=== PATIENT | male | born 1930 | race Caucasian/White ===

== ENCOUNTER 2017-01-27 15:58 | Inpatient (IN) | payer MEDICARE, OTHER ==
[~2017-01-27] VITALS: Ht 162.6 cm; Wt 73.4 kg
[2017-01-27 16:03] VITALS: BP 161/75; PULSE 98; RESP 24; O2SAT 92
--- NOTE | 2017-01-27 16:18 | ED.REPORT ---
HPI-General Illness Date of Service Jan 27, 2017 ED Provider: Charly Diaz MD Patient is an 86 year old male with a history of hypertension and dementia who presents to the ED complaining of left index finger swelling. According to , the patient smashed his finger 2 days ago and had a doctor drain it. He was seen at today, who reports that the finger looks infected, with increased erythema, swelling and that the finger is hot to the touch. The patient denies chills or fever. When asked if he injured his finger, the patient states that it spontaneously started swelling and he did not smash it. The patient also reports that it started swelling a week ago. The patient was unable to give an accurate history secondary to his dementia. Information was obtained from notes, triage nurse and patient's son. Nursing Notes Stated Complaint: LEFT FINGER SWOLLEN/SENT FROM Chief Complaint: General Complaint Nursing Notes Reviewed: Yes Allergies: Coded Allergies: No Known Allergies (Unverified , 01/26/16) Scheduled Metoprolol Tartrate (Metoprolol Tartrate) 25 Mg Tablet 25 MG PO DAILY General Time Seen by MD: 16:17 Chief Complaint Other (left index finger swelling) Hx Obtained From: Patient, Son, Primary care provider () Arrived By: Walk-in Sudden in Onset?: Yes Onset Occurred: 2 days ago Symptom Duration: Since onset Location: : Hand left Quality: Painful Radiation: : Does not radiate Recent Healthcare: No recent hospitalization, Recent doctor visit Similar Sx Previous: No Past Medical History Past Medical History Reports: Hypertension Reports: Dementia Past Surgical History hernia repair Reports: Appendectomy, Tonsillectomy Smoking History Unknown if Ever Smoker Social History Other Social History: Good social support Ambulatory Status Independent Review of Systems Full Review of Systems Constitutional: Denies: Chills, Fever Respiratory: Denies: Non-productive cough, Shortness of breath Musculoskeletal: Reports: Extremity pain (left index finger), Extremity swelling Skin: Denies Rash Complete sys rev & neg: except as marked. Physical Exam Vital Signs Vital Signs Date Time Temp Pulse Resp B/P Pulse Ox O2 Delivery O2 Flow Rate FiO2 01/27/17 17:10 97 20 157/73 94 Room Air 01/27/17 17:02 97 20 157/73 94 Room Air 01/27/17 16:03 37.2 98 24 161/75 92 Room Air Initial VS: Reviewed General/Constitutional: Awake, Alert, No acute distress Head / Eyes: Atraumatic, Normocephalic, PERRL, EOMI Neck: Atraumatic, Full range of motion Respiratory / Chest: Atraumatic, No respiratory distress Upper Extremities Upper Extremity / MS: Atraumatic, Full range of motion HAND: left index finger is erythematous, swollen with significant fluctuance of entire dorsum extending from the nail bed to proximal MCP joint. Appears to be filled with purulent material. Sensation and nerves still intact. No evidence of trauma Skin: No rash, Warm, Dry Neurologic: Speech NL, No motor deficits, No sensory deficits Psychiatric: Affect NL, Mood NL Interpretation & Diagnostics Lab Results Interpretation Result Diagram: 01/27/17 1648 01/27/17 1648 Test 01/27/17 16:48 White Blood Count 16.7th/mm3 (3.8-10.1) Red Blood Count 4.56mil/mm3 (4.40-5.80) Hemoglobin 13.0g/dL (13.8-17.2) Hematocrit 40.1% (41.0-50.0) Mean Corpuscular Volume 87.9fL (81-100) Mean Corpuscular Hemoglobin 28.5pg (27.0-35.0) Mean Corpuscular Hemoglobin Concent 32.4% (32.0-37.0) Red Cell Distribution Width 13.9% (12.3-15.4) Platelet Count 238bil/L (150-400) Neutrophils (%) (Auto) 83.0% (40-74) Lymphocytes (%) (Auto) 8.9% (14-46) Monocytes (%) (Auto) 7.7% (4-12) Eosinophils (%) (Auto) 0% (0-5) Basophils (%) (Auto) 0.1% (0-3) Sodium Level 137mEq/L (134-144) Potassium Level 4.1mEq/L (3.5-5.2) Chloride Level 102mEq/L (97-108) Carbon Dioxide Level 20mmol/L (18-29) Blood Urea Nitrogen 23mg/dL (8-27) Creatinine 1.31mg/dL (0.76-1.27) Estimat Glomerular Filtration Rate 55mL/min (>59) Glucose Level 133mg/dL (60-99) Lactic Acid Level 1.2mmol/L (0.4-2.0) Calcium Level 9.3mg/dL (8.5-10.1) Total Bilirubin 0.8mg/dL (0.0-1.2) Aspartate Amino Transf (AST/SGOT) 15U/L (0-50) Alanine Aminotransferase (ALT/SGPT) 10U/L (0-44) Alkaline Phosphatase 78U/L (25-160) Total Protein 7.4g/dL (6.4-8.4) Albumin 3.6g/dL (3.4-5.0) ECG Interpretation ECG Interpretation: normal axis normal intervals inferior Q waves present no ST segment elevation no acute T wave abnormalities compared to prior EKG, prior inferior Q waves are now pronounced otherwise no acute ischemic changes are present Time: 16:46 Interpreted by: ED physician Normal ECG Interpretation: Normal rate (96), Normal sinus rhythm X-Ray Chest Interpretation Chest Xray Interpretation: IMPRESSION: Mild bibasilar atelectasis in the setting of reduced inspiratory volume and chronic mild asymmetric elevation of the right hemidiaphragm. A slight degree of pulmonary edema conceivably could be superimposed. Dictated by: Artur Potter M.D. on 01/27/2017 at 17:52 Approved by: Artur Potter M.D. on 01/27/2017 at 17:53 View: Portable, 1 view Interpretation / Wet Read by: Interpret - Radiologist X-Ray Interpretation Xray Interpretation: IMPRESSION: Second digit prominent soft tissue swelling, no gas in the soft tissues. Small metallic foreign bodies as discussed. No acute trauma found. Moderate osteoarthritis incidentally noted. Dictated by: Artur Potter M.D. on 01/27/2017 at 17:53 Approved by: Artur Potter M.D. on 01/27/2017 at 17:55 X-Ray Ordered: Hand left Interpretation / Wet Read by: Interpret - Radiologist Procedures Incision & Drainage Abscess Time: 16:35 Procedure Performed by: ED physician Consent / Setup / Site Prep: Consent from patient, Consent from guardian, Time-out performed Location of Abscess: left index finger Skin Preparation Agent: Other (chloraprep) Pus Drained: Small (1ml) Post-Procedure / Complications: Culture obtained, Dressing applied, Condition improved, Tolerated procedure well, Patient stable Re-Eval/Medical Decision Med Decision/Clinical Course Patient is an 86 year old male with a history of hypertension and dementia who presents to the ED complaining of left index finger swelling. According to , the patient smashed his finger 2 days ago and had a doctor drain it. He was seen at today, who reports that the finger looks infected, with increased erythema, swelling and that the finger is hot to the touch. The patient denies chills or fever. When asked if he injured his finger, the patient states that it spontaneously started swelling and he did not smash it. The patient also reports that it started swelling a week ago. The patient was unable to give an accurate history secondary to his dementia. Information was obtained from notes, triage nurse and patient's son. Here in the emergency department the patient is afebrile and hemodynamically stable though borderline tachycardic. Examination reveals significant swelling , erythema and abscess formation about the entire dorsum of his left index finger. IV access was obtained, blood cultures were sent and the wound was opened using an 18-gauge needle and pus was expressed/sent for culture, the patient was started on IV Unasyn. Labs as below: WBC 16.7/Hgb 13.0/Hct 40.1/BUN 23/Creatinine 1.31 CMP otherwise unremarkable Lactic acid 1.2 Patient was discussed with orthopedic surgery, Dr. Robb, who agreed to evaluate the patient for likely operative management. I do not feel that this is an abscess which is appropriate for drainage in the emergency department. Dr. Robb requested that I consult infectious disease and I spoke with Dr. Christina who agreed to formally consult and he also agreed with our choice and initial antibiotics. The patient was admitted to the hospitalist service in stable condition for further management. Time of Eval: 16:37 Re-Evaluation/Progress Note: Discussed plan for admit. Patient understands and agrees to plan. All questions were addressed. Consultation #1: Referral / Consult Name: Rodney Robb MD Consulted With: Surgeon (ortho) Call Returned at: 16:28 Bakery Sales Clerk: Agrees with eval, Agrees with plan Note: Consult with Dr. Robb, who requests the patient be admitted to the hospitalist service. Consultation #2: Referral / Consult Name: Jose Christina MD Consulted With: On-call physician (infectious disease) Call Returned at: 17:15 Bakery Sales Clerk: Will see patient, Agrees with eval, Agrees with plan Consultation #3: Referral / Consult Name: Maranda Loco DO Consulted With: Hospitalist Call Returned at: 19:18 Bakery Sales Clerk: Agrees with eval, Agrees with plan, Accepts admit Counseled Regarding: Diagnosis, Lab results, Need for admission Discharge & Departure Primary Impression: Injury of left index finger Encounter type: initial encounter Qualified Code: S69.92XA - Unspecified injury of left wrist, hand and finger(s), initial encounter Additional Impressions: Abscess of index finger Cellulitis of index finger Laterality: left Qualified Code: L03.012 - Cellulitis of left finger Tachycardia Leukocytosis Leukocytosis type: unspecified Qualified Code: D72.829 - Elevated white blood cell count, unspecified Disposition: ADMITTED TO HOSPITAL Discharge Condition All VS Reviewed: Yes Condition: Stable Referrals: Gabe Sanon MD (PCP) Addie Attestation Portions of this note were transcribed by Nuris Roberson. I, Dr. Diaz personally performed the history, physical exam and medical decision-making; I reviewed and confirmed the accuracy of the information in the transcribed note. Signed by: Addie Khan, 01/27/17 and 1640 copies to: Gabe Sanon MD, Beck O MD Jan 27, 2017 16:18 Josy Roberson Jan 27, 2017 16:29
[2017-01-27] MEDS ORDERED: Ampicillin-Sulbactam Inj 3,000 MG in 0.9% Sodium Chloride 100 ML IV ONE (16:30)
[2017-01-27] MEDS ORDERED: Alum-Mag Hydrox-Simeth 30 mL Suspension PO PRN ×2 (16:30→20:05)
[2017-01-27] MEDS ORDERED: Ondansetron 2 mg/mL 2 mL Inj IVPUSH PRN ×2 (16:30→20:05)
[2017-01-27] MEDS ORDERED: METO25TA6 PO (16:40)
[2017-01-27 16:51] LABS: BASOPHILS % (AUTO) 0.1 % (0-3); EOSINOPHILS % (AUTO) 0 % (0-5); MONOCYTES % (AUTO) 7.7 % (4-12); Mean Corpuscular Hemoglobin 28.5 pg (27.0-35.0); Mean Corpuscular Volume 87.9 fL (81-100); Platelet Count 238 bil/L (150-400)
[2017-01-27 17:02] VITALS: BP 157/73; PULSE 97; RESP 20; O2SAT 94
--- NOTE | 2017-01-27 17:54 | DRSVH ---
PROCEDURE: X-RAY CHEST, TWO VIEWS ([id number]) INDICATIONS: low sat TECHNIQUE: 2 views of the chest were acquired. COMPARISON: None. FINDINGS: Surgical changes and devices: None. Lungs and pleura: No pleural effusions or pneumothorax. Lungs are abnormal with reduced inspiratory volume and mild elevation of the right hemidiaphragm as has been previously the case. There is what appears to be mild bibasilar atelectasis rather than pneumonia.. Mediastinum: Mediastinal contours are normal. Heart size is normal. Bones and chest wall: No suspicious bony abnormalities. Soft tissues appear unremarkable. IMPRESSION: Mild bibasilar atelectasis in the setting of reduced inspiratory volume and chronic mild asymmetric elevation of the right hemidiaphragm. A slight degree of pulmonary edema conceivably cou ld be superimposed. Dictated by: Artur Potter M.D. on 01/27/2017 at 17:52 Approved by: Artur Potter M.D. on 01/27/2017 at 17:53
--- NOTE | 2017-01-27 17:56 | DRSVH ---
PROCEDURE: X-RAY FINGERS, TWO VIEWS INDICATIONS: low sat TECHNIQUE: AP hand, 2 views of the second finger(s) acquired. COMPARISON: None. FINDINGS: Bones: No fractures or dislocations. No suspicious bony lesions. Soft tissues: No suspicious soft tissue calcifications but there are 2 small metallic structures wit hin soft tissues lateral to the proximal phalanx of the second digit, and a similar appearing structu re superimposed on the distal aspect of the fourth proximal phalanx also laterally. The appearance m ay indicate prior metal working in this circumstance. Underlying osteomyelitis or fracture is not se en but soft tissue swelling is clearly evident over the entirety of the second digit. IMPRESSION: Second digit prominent soft tissue swelling, no gas in the soft tissues. Small metallic foreign bodies as discussed. No acute trauma found. Moderate osteoarthritis incidentally noted. Dictated by: Artur Potter M.D. on 01/27/2017 at 17:53 Approved by: Artur Potter M.D. on 01/27/2017 at 17:55
[2017-01-27 18:01] VITALS: BP 179/79; PULSE 92; RESP 16; O2SAT 96
--- NOTE | 2017-01-27 18:25 | NUR ---
ADMIT Patient received from the ED via a gurney. Transferred independently in bed. Patient is alert and oriented to person and place only. Dressing in his L 2nd finger is CDI. Denies pain, nausea/SOB. Oriented to room and call light. [place] alarm is on for safety.
[2017-01-27 19:35] VITALS: BP 166/71; PULSE 80; RESP 16; O2SAT 92
[2017-01-27] MEDS ORDERED: Polyethylene Glycol (PEG) 17 Gm Powder PO PRN (20:05)
--- NOTE | 2017-01-27 20:28 | PCM.HPMED ---
Subjective Date of Service Jan 27, 2017 Primary Provider: Admitting Physician: Maranda Loco DO Primary Care Physician: Gabe Sanon MD Attending Physician: Maranda Loco DO Admit Status: From the Emergency Department Chief Complaint: Infected left index finger History of Present Illness: The patient is a pleasant happily demented 86 Y/O M with past medical history of dementia, and essential hypertension controlled on metoprolol 25 mg daily. The patient presented to the ED from urgent care with complaint of left dorsal index finger redness, swelling, warmth, purulence and pain. The patient is an extremely poor historian and his family is not present during the interview. The patient states he believes the wound occurred approximately 2 weeks ago, however per the ED physician note and the urgent care note it seems the onset may have been 2 days ago. The patient is unable to recall any form of trauma to the finger. He states that the wound just happened. Patient patient denies fever, nausea, vomiting, chills, sweats, sore throat, abdominal pain, constipation, dysuria, cough, shortness of breath, dyspnea, chest pain. Patient currently lives with his son Larry as well as reportedly other family members he was unable to identify. An attempt to call his son's phone number was unsuccessful given the phone number had been disconnected. Phone number the patient gave for his son was [phone]. In the ED patient had I&D of the left dorsal index finger with removal of a small amount of pus that was sent for culture. Orthopedic surgery Dr. Cindy Robb was consulted by the ED physician and will be seeing the patient. Infectious disease was also consulted and is aware of the patient's status per the ED physician. The patient also has a wound on the back of his neck that he has been nervously picking at and causing to bleed. There was fresh blood on the pillowcase during the exam. Patient also appears to be excoriations on his right anterior forehead. X-ray showed: 2 small metallic structures within soft tissues lateral to the proximal phalanx of the second digit, and a similar appearing structure superimposed on the distal aspect of the fourth proximal phalanx also laterally. The appearance may indicate prior metal working in this circumstance. Underlying osteomyelitis or fracture is not seen but soft tissue swelling is clearly evident over the entirety of the second digit. Moderate osteoarthritis incidentally noted. CXR showed: Mild bibasilar atelectasis in the setting of reduced inspiratory volume and chronic mild asymmetric elevation of the right hemidiaphragm. A slight degree of pulmonary edema conceivably could be superimposed. In the ED patient received 3000 mg of Unasyn IV. Vital signs: temperature 37.2, pulse 80, respiratory rate 16, blood pressure 161 /75, oxygen 92% on room air hemogram showed: WBC 16.7 with 83.0 PMNs and 8.9% lymphs, H/H was 13.0/40.1, and MCV of 87.9, MCH 28.5, MCHC 32.4 Chemistry panel significant for a creatinine of 1.31 and a glucose of 133 Lactic acid was normal at 1.2 Urinalysis was not done EKG showed: Unknown rhythm, irregular rate, heart rate of 96, WI interval of 133 with nonspecific intraventricular conduction delay, he was present in leads II, III, and F aVF consistent with old inferior wall infarct, no acute ST segment changes or elevations or depressions note wave abnormalities seen. Review of Systems: A comprehensive review of systems was conducted and was negative except as mentioned in history of present illness. Allergies Coded Allergies: No Known Allergies (Unverified , 01/26/16) Home Medications Metoprolol Tartrate (Metoprolol Tartrate) 25 Mg Tablet 25 MG PO DAILY PMH Reports: Hypertension Reports: Dementia History of bilateral decubitus ulcer on the right buttock stage II 11/22/2016 Chronic skin sensation disorder Surgical History hernia repair Appendectomy Tonsillectomy Family History Father Mother Older sister who is alive and healthy Social History Hx Alcohol Use: No Hx Substance Use: No Hx Tobacco Use: No Smoking Status: Unknown if Ever Smoker Living Arrangement: with Family (lives with son Larry) Exam Vital Signs Vital Sign - Last Date Time Temp Pulse Resp B/P Pulse Ox O2 Delivery O2 Flow Rate FiO2 01/27/17 19:35 37.1 80 16 166/71 92 Room Air Exam General: He is alert and oriented to self only, speaking in full sentences, very poor historian giving his underlying chronic Alzheimer's dementia, happily demented, HEENT: Relatively recent appearing excoriations on the forehead, wound on posterior neck, no mastoid condon signs or signs of ecchymoses, eyes, pupils are 3 mm and symmetric, PERRLA, EOMI, neck, soft supple, no adenopathy, no JVD, no masses, no thyromegaly, throat mucous membranes pink and moist, no erythema, no exudates, Dentures on upper and lower jaw Lungs: CTAB all kulkarni, no wheezes, no rhonchi, no crackles, no adventitious lung sounds, no use of accessory muscles of respiration, good air movement, good respiratory effort. Heart: Regular rate and rhythm, no murmur, no rub, no click, no distant heart sounds, Abdomen: Soft, nontender, nondistended, bowel sounds active, no rebound, no guarding, palpable hernia on anterior of abdomen that is 3 cm superior to the umbilicus Genitourinary: No CVA tenderness, no suprapubic tenderness, no Bullock catheter, Extremities: Muscle strength, 5 out of 5 upper/lower extremity and symmetric laterally, Upper ext. pulses equal and symmetric. Lower extremity pulses diminished but present b/l, feet warm to touch. no edema Neurologic: Grossly neurologically intact, speaking in full sentences, able to follow directions and answer questions but often with inconsistency, no focal neurological signs. Skin: Dorsal index finger infection on left hand and mostly distal to and slightly involving the PIP joint with swelling, erythema, purulent, and painful but with good capillary refill, dressed with a clean gauze bandage, excoriations on forehead, posterior neck wound Psychiatric: Happily demented elderly gentleman Lab and Diagnostics Result Diagram: 01/27/17 1648 01/27/17 1648 X-Rays, CTs and MRIs Date of Service: 01/27/17 1627 PROCEDURE: X-RAY CHEST, TWO VIEWS FINDINGS: Surgical changes and devices: None. Lungs and pleura: No pleural effusions or pneumothorax. Lungs are abnormal with reduced inspiratory volume and mild elevation of the right hemidiaphragm as has been previously the case. There is what appears to be mild bibasilar atelectasis rather than pneumonia.. Mediastinum: Mediastinal contours are normal. Heart size is normal. Bones and chest wall: No suspicious bony abnormalities. Soft tissues appear unremarkable. IMPRESSION: Mild bibasilar atelectasis in the setting of reduced inspiratory volume and chronic mild asymmetric elevation of the right hemidiaphragm. A slight degree of pulmonary edema conceivably could be superimposed. Dictated by: Artur Potter M.D. on 01/27/2017 at 17:52 Approved by: Artur Potter M.D. on 01/27/2017 at 17:53 Date of Service: 01/27/17 1627 PROCEDURE: X-RAY FINGERS, TWO VIEWS INDICATIONS: low sat Bones: No fractures or dislocations. No suspicious bony lesions. Soft tissues: No suspicious soft tissue calcifications but there are 2 small metallic structures within soft tissues lateral to the proximal phalanx of the second digit, and a similar appearing structure superimposed on the distal aspect of the fourth proximal phalanx also laterally. The appearance may indicate prior metal working in this circumstance. Underlying osteomyelitis or fracture is not seen but soft tissue swelling is clearly evident over the entirety of the second digit. IMPRESSION: Second digit prominent soft tissue swelling, no gas in the soft tissues. Small metallic foreign bodies as discussed. No acute trauma found. Moderate osteoarthritis incidentally noted. Dictated by: Artur Potter M.D. on 01/27/2017 at 17:53 Approved by: Artur Potter M.D. on 01/27/2017 at 17:55 Assessment & Plan #Purulent acute Left index finger infection/cellulitis, active, present on admission - Vital signs: temperature 37.2, pulse 80, respiratory rate 16, blood pressure 161/75, oxygen 92% on room - Wbc's greater than 16,000 -Lactic acid was 1.2 normal - She denies pain currently - X-ray showed: 2 small metallic structures within soft tissues lateral to the proximal phalanx of the second digit, and a similar appearing structure superimposed on the distal aspect of the fourth proximal phalanx also laterally. The appearance may indicate prior metal working in this circumstance. Underlying osteomyelitis or fracture is not seen but soft tissue swelling is clearly evident over the entirety of the second digit. Moderate osteoarthritis incidentally noted. - Dr. Rodney Robb orthopedic surgery consulting thank you for your input. - Dr. Jose Christina infectious disease consulting, thank you for your input. - Patient currently on IV normal saline at 85 ML's per hour maintenance. - Patient made nothing by mouth for possible surgical procedure with orthopedic surgery - Patient is status post I&D in the ED with culture of the purulent material recovered. We are awaiting the culture results - We will continue the Unasyn IV antibiotics started in the ED, #Elevated creatinine, chronicity unknown, present on admission - EKG showed: Unknown rhythm, irregular rate, heart rate of 96, WI interval of 133 with nonspecific intraventricular conduction delay, he was present in leads II, III, and F aVF consistent with old inferior wall infarct, no acute ST segment changes or elevations or depressions note wave abnormalities seen. - Chemistry panel significant for a creatinine of 1.31 #Leukocytosis with left shift, present remission, active - Patient does not meet sepsis criteria - WBCs 16.7, left shift of 89% PMNs - CXR showed: Mild bibasilar atelectasis in the setting of reduced inspiratory volume and chronic mild asymmetric elevation of the right hemidiaphragm. A slight degree of pulmonary edema conceivably could be superimposed. - Likely secondary infected left index finger - We will get UA to rule out possible urinary tract infection given patient's underlying dementia - Continue antibiotic Unasyn as previously stated - Infectious disease consulting #Normocytic normochromic anemia, chronicity unknown, present on admission - H/H was 13.0/40.1, and MCV of 87.9, MCH 28.5, MCHC 32.4 #Hyperglycemia, present on admission -Glucose 133 - Hemoglobin A1c pending Problems include #Hypertension, chronic, presumed stable - Continue home medications metoprolol 25 mg daily #Dementia, presumed stable Disposition: Admitted to in patient service with expected length of stay greater than 2 days, secondary to severity of presenting symptoms, treatment plan, complexity of clinical work up, and risk of adverse events. CODE STATUS: Full code PCP: No current PCP DVT PE prophylaxis: SCD's/Enoxiparin/SubQ heparin Q8H Contact: Larry patient's son VTE Mechanical Devices: Intermittant Pneumatic CD Attending Statement The patient was seen and examined together with house staff on 01/27/2017 and I agree with the history, exam and plan as outlined in the note above. Rodolfo Mercedes DO Jan 27, 2017 20:28 Maranda Loco DO Jan 27, 2017 22:53
[2017-01-28] VITALS (12 sets, daily range): BP systolic 109–175; BP diastolic 42–77; PULSE 69–89; RESP 16–24; O2SAT 93–100
[2017-01-28] MEDS: Ampicillin-Sulbactam Inj 3,000 MG in 0.9% Sodium Chloride 100 ML IV SCH ×3 (00:04→11:49)
[2017-01-28] MEDS: 0.9% Sodium Chloride 1,000 ML IV SCH ×2 (00:04→09:30)
--- NOTE | 2017-01-28 05:28 | CONS ---
[address] [address] CONSULTATION REPORT PATIENT: LIZETH GOMEZ : 1930 MR#: [id number] ADMIT: 01/27/2017 JOB ID: [id number] DATE OF SERVICE: 01/27/2017 ORTHOPEDIC CONSULTATION: REASON FOR CONSULTATION: Decision for surgery. CPT CODE: 67209-72 HISTORY OF PRESENT ILLNESS: I was asked to see 86-year-old male in orthopedic consultation for an infected left index finger. 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 First he states he smashed his left index finger a couple of weeks ago. 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 I asked the ED physician to take a small culture, since there appeared to be some purulent material over the dorsum of the finger. The patient was admitted and placed on IV antibiotics. PAST MEDICAL HISTORY: Positive for hypertension, dementia, prior history of decubitus ulcers in the right buttock, chronic skin sensation disorder. PRIOR SURGERIES: Hernia repair, appendectomy, tonsillectomy. SOCIAL HISTORY: Patient lives with a son. Does not smoke or drink. FAMILY HISTORY: Noncontributory. REVIEW OF SYSTEMS: Pertinent for painful left index finger with swelling and erythema. Review of systems completely reviewed, and appears to be negative, except for the painful left index finger. PHYSICAL EXAMINATION: 162 cm, 74 kg male. Patient is lying in bed. He appears to be somewhat confused as a historian. He has swelling and erythema of the dorsum of the left index finger from the middle phalanx to the distal phalanx. There is no erythema over the volar aspect of the finger. No cellulitis proximally, or lymphangitis over the forearm. The patient has decreased range of motion of the fingers secondary to pain and the infection. X-rays do show that he has a couple of very small foreign metal bodies over the index finger, which may be of indeterminate age since he also has a small 1-2 mm metal fragment over the ring finger. LABORATORY TESTING: White count 16,700, hemoglobin 13.0, hematocrit 40.1, and platelet count 238,000. Sodium 137, potassium 4.1, chloride 102, CO2 of 20, BUN 23, creatinine 1.31. Lactic acid 1.2. Liver function tests within normal limits. IMAGING: Chest x-ray shows some mild bibasilar atelectasis, but no other acute infiltrates. Finger x-ray showed soft tissue swelling of the left index finger, with two small metallic foreign bodies and some moderate degenerative osteoarthritis. The patient also has a small metal foreign body over the ring finger. This may be of indeterminate age. IMPRESSION: Left index finger infection. PLAN: The patient will be taken to the operating room on January 28, 2017, for incision, drainage, irrigation, and debridement of the infection. The patient does have some dementia. His son is going to be here tomorrow, and his son will also need to be available to counter-sign surgical consents. The patient is currently on Unasyn, and should stay on Unasyn. I did explain to the patient that he may require more than one surgery, but hopefully, will not; hopefully one surgery with some wound care might take care of the infection. Infectious Disease was also consulted.
[2017-01-28 06:42] LABS: BASOPHILS % (AUTO) 0.3 % (0-3); EOSINOPHILS % (AUTO) 1.5 % (0-5); MONOCYTES % (AUTO) 7.5 % (4-12); Mean Corpuscular Hemoglobin 28.3 pg (27.0-35.0); Mean Corpuscular Volume 89.1 fL (81-100); NEUTROPHILS % (AUTO) 75.9 % (40-74); Platelet Count 213 bil/L (150-400)
[2017-01-28] MEDS ORDERED: Lidocaine PF 1% 30 mL Inj ONE (09:51)
[2017-01-28] MEDS ORDERED: Ondansetron 2 mg/mL 2 mL Inj ONE (09:51)
[2017-01-28] MEDS ORDERED: Propofol 10,000 mCg/mL 20 mL Inj ONE (09:51)
[2017-01-28] MEDS ORDERED: Phenylephrine/NS-PF 100 mCg/mL 5 mL Syringe IVPUSH ONE (09:51)
[2017-01-28] MEDS ORDERED: EPHEDrine/NS 5 mg/mL 5 mL Syringe ONE (09:51)
[2017-01-28] MEDS ORDERED: fentaNYL-PF 50 mCg/mL 2 mL Inj ONE (09:51)
--- NOTE | 2017-01-28 11:19 | PCM.HPANE ---
Patient Data Date of Service: Jan 28, 2017 Surgeon Admitting Provider:Marjan Bauer MD Attending Provider:Marjan Bauer MD Primary Care Physician:Gabe Sanon MD Other Provider: Reason for Visit Finger Infection Ht/WT & BMI Height (Feet): 5 Height (Inches): 4.00 Weight (Kilograms): 74.500 Body Mass Index 28.04 Allergies Coded Allergies: No Known Allergies (Unverified , 01/26/16) Past Anesthesia History Anesthesia History: Denies:: Anesthesia Reactions Diabetes History Hx Diabetes?: No MRSA MRSA: No Medications Hypertension Medication: Yes Home Meds Incl Beta Veronica: Yes Date Beta Veronica Taken: Jan 28, 2017 Time Beta Veronica Taken: 09:30 Reported Medications Metoprolol Tartrate 25 Mg [id number] Mg PO DAILY 01/27/17 History History of ENT Problems?: Yes HEENT History: Denies:: Abnormal Airway TMJ Denture Type: Full- Upper Full- Lower Teeth Condition: No Teeth Other HEENT Pertinent History: astigmatism Hx of Heart Problems?: Yes Cardiovascular History: Positive for:: Edema Hypertension Denies:: Cardiac Surgery Chest Pain Congestive Heart Failure Heart Murmur Irregular Heartbeat Pacemaker Thrombophlebitis Hx of Respiratory Problem?: No Respiratory History: Denies:: COPD Cough Dyspnea Pneumonia Tuberculosis Use of Inhalers / NEBS Hx Neurologic Problems?: Yes Neurological History: Positive for:: Alzheimer's Disease Dementia Hx of GI Problems?: No Hx of Problems?: No Male Hx: Denies:: Prostate Problems Scrotal Mass Testicular Surgery Other Skin Pertinent History: Current admission: lt.index finger injury: swelling, redness, painful to touch, purulent content visible within Hx Musculoskeletal Problems?: Yes Musculoskeletal History: Positive for:: Back Injury (spinal stenosis) Denies:: Joint Replacement Musculoskeletal Trauma Hx of Psycho/Social Problems?: No Hx Surgeries?: Yes (hernia repair, appendectomy, tonsillectomy) Hx Any Other Health Problems?: Yes Other History: Denies:: Cancer Hospitalization Thyroid Disease History Blood Transfusions: Positive for:: Accept Blood Products? Denies:: Blood Transfusions Hx Diabetes: No Hx Alcohol Use: NoHx Substance Use: No Smoking Status: Unknown if Ever Smoker Have You Smoked inLast 12 mo: No Stop/Bang Treated for Sleep Apnea?: No Do You Have a CPAP Machine?: No S-Snoring: Do You Snore Loudly: No T-Tired: feel tired, fatigued: No O-Obsered: Observed not breath: No P-Blood Pressure: treated: Yes B- Body Mass Index > 35 kg/m2: No A- Age over 50: Yes N- Neck Large Circumference: No G- Gender Male: Yes ALTAF Total Score: 2 ALTAF Risk Assessment: Low Risk, <3 Yes Risk Assessment Category Category 1A: Patient has history of documented sleep apnea, and HAS NOT received any narcotic, sedative or anesthesia administration during this stay. Category 1B: Patient has history of documented sleep apnea, and HAS received any narcotic , sedative or anesthesia administration during this stay Category 2: Patient has SUSPECTED Obstructive Sleep Apnea, and HAS received any narcotic , sedative or anesthesia administration during this stay. Category 3: Patient has SUSPECTED Obstructive Sleep Apnea and HAS NOT received narcotic, sedative or anesthesia administration during this stay. Category 4: Outpatient in Procedural Areas with known sleep apnea or who screen positive for High Risk via the STOP/BANG questionnaire. Exam Exam Vital Signs Vital Signs Date Time Temp Pulse Resp B/P Pulse Ox O2 Delivery O2 Flow Rate FiO2 01/28/17 09:02 36.7 89 18 175/77 95 Room Air 01/28/17 05:50 36.7 74 18 167/71 94 Room Air General Appearance: Alert, Cooperative, No Acute Distress HEENT/AIRWAY: MP 1, Neck Movement (limited extension, tmd > 3 fb), Mouth Opening (normal, edentulous) Lungs: Clear to Auscultation, Normal Air Movement Heart: Regular Rate/Rhythm, Other (occasional ectopy) Meds/Labs/Diagnostics Admission Meds Current Medications Ampicillin Sodium/ Sulbactam Sodium 3000 mg/Sodium Chloride 100 ml @ 200 mls/ hr ONCE ONCE IV Last administered on 01/27/17 17:02; Start 01/27/17 at 16:30 ; Stop 01/27/17 at 16:59; Status DC Sodium Chloride 1,000 ml @ 85 mls/hr [id number] IV Last administered on 01/28/17 09:30; Start 01/27/17 at 20:02 Ampicillin Sodium/ Sulbactam Sodium/ Sodium Chloride (Unasyn Inj/ Normal Saline ) 100 ml @ 200 mls/hr Q6H IV Last administered on 01/28/17 05:17; Start at 23:00 Metoprolol Tartrate (Lopressor) 25 mg DAILY PO Last administered on 01/28/17t 09 :29; Start 01/28/17 at 08:30 Labs Test 01/27/17 16:48 01/28/17 05:57 Hemoglobin A1c 5.7% (4.8-5.6) Lactic Acid Level 1.2mmol/L (0.4-2.0) White Blood Count 12.3th/mm3 (3.8-10.1) Red Blood Count 4.13mil/mm3 (4.40-5.80) Hemoglobin 11.7g/dL (13.8-17.2) Hematocrit 36.8% (41.0-50.0) Mean Corpuscular Volume 89.1fL (81-100) Mean Corpuscular Hemoglobin 28.3pg (27.0-35.0) Mean Corpuscular Hemoglobin Concent 31.8% (32.0-37.0) Red Cell Distribution Width 13.7% (12.3-15.4) Platelet Count 213bil/L (150-400) Neutrophils (%) (Auto) 75.9% (40-74) Lymphocytes (%) (Auto) 14.6% (14-46) Monocytes (%) (Auto) 7.5% (4-12) Eosinophils (%) (Auto) 1.5% (0-5) Basophils (%) (Auto) 0.3% (0-3) Sodium Level 141mEq/L (134-144) Potassium Level 3.9mEq/L (3.5-5.2) Chloride Level 107mEq/L (97-108) Carbon Dioxide Level 21mmol/L (18-29) Blood Urea Nitrogen 19mg/dL (8-27) Creatinine 1.07mg/dL (0.76-1.27) Estimat Glomerular Filtration Rate 69mL/min (>59) Glucose Level 95mg/dL (60-99) Calcium Level 8.9mg/dL (8.5-10.1) Total Bilirubin 1.0mg/dL (0.0-1.2) Aspartate Amino Transf (AST/SGOT) 13U/L (0-50) Alanine Aminotransferase (ALT/SGPT) 7U/L (0-44) Alkaline Phosphatase 68U/L (25-160) Total Protein 6.6g/dL (6.4-8.4) Albumin 3.1g/dL (3.4-5.0) Plan Impression Patient chart reviewed, patient interviewed and anesthestic plan with risks, benefits, and alternatives discussed, and informed consent obtained. NPO per Anesth. Guidelines: Yes ASA Physical Status: ASA2 Mod Systemic Disease Anesthetic Plan: GA Bene/Risks/Altern/Consents: Yes (with son (DPOA)) HP Complete Prior to Induction: Yes Other Patient refused regional anesthesia for procedure and desired GA. Son (DPOA) with patient and desired GA as well for patient. Dell Rangel MD Jan 28, 2017 11:19
--- NOTE | 2017-01-28 12:03 | NUR ---
Med Rec Pt. alert and oriented x2, unable to verify meds/doses. Made an attempt to contact Son, Lawson, also unavailable at this time. Pt.s' pharmacy is closed on Weekends. This med rec needs to be verified once these resources become available.
--- NOTE | 2017-01-28 12:07 | PCM.PNMED ---
Subjective Date of Service Jan 28, 2017 Subjective No complaints, denies pain. Exam Vital Signs Vital Sign - Last Date Time Temp Pulse Resp B/P Pulse Ox O2 Delivery O2 Flow Rate FiO2 01/28/17 09:02 36.7 89 18 175/77 95 Room Air Intake and Output 01/27/17 01/27/17 01/28/17 Cumulative From/Thru 15:00 23:00 07:00 01/27/17 16:03 - 01/28/17 05:50 Intake Total 400 ml 400 ml Output Total 200 ml 200 ml Balance 200 ml 200 ml Intake Oral 0 ml 0 ml IV Total 400 ml 400 ml Output Urine Total 200 ml 200 ml # Voids 1 1 # Bowel Movements 0 0 Exam General: Alert, oriented only to name, no acute distress Heart: Regular with occl irreg beat, EKG SR with PAC's Lungs: Clear Abdomen: Soft, non-tender Extremities: No pedal edema, left index finger with dressing in place IVs and Medications Medications Reviewed: Medications were reviewed in detail Lab and Diagnostics Result Diagram: 01/28/17 0557 01/28/17 0557 X-Rays, CTs and MRIs Date of Service: 01/27/171626 PROCEDURE: X-RAY CHEST, TWO VIEWS FINDINGS: Surgical changes and devices: None. Lungs and pleura: No pleural effusions or pneumothorax. Lungs are abnormal with reduced inspiratory volume and mild elevation of the right hemidiaphragm as has been previously the case. There is what appears to be mild bibasilar atelectasis rather than pneumonia.. Mediastinum: Mediastinal contours are normal. Heart size is normal. Bones and chest wall: No suspicious bony abnormalities. Soft tissues appear unremarkable. IMPRESSION: Mild bibasilar atelectasis in the setting of reduced inspiratory volume and chronic mild asymmetric elevation of the right hemidiaphragm. A slight degree of pulmonary edema conceivably could be superimposed. Dictated by: Artur Potter M.D. on 01/27/2017 at 17:52 Approved by: Artur Potter M.D. on 01/27/2017 at 17:53 Date of Service: 01/27/171626 PROCEDURE: X-RAY FINGERS, TWO VIEWS INDICATIONS: low sat Bones: No fractures or dislocations. No suspicious bony lesions. Soft tissues: No suspicious soft tissue calcifications but there are 2 small metallic structures within soft tissues lateral to the proximal phalanx of the second digit, and a similar appearing structure superimposed on the distal aspect of the fourth proximal phalanx also laterally. The appearance may indicate prior metal working in this circumstance. Underlying osteomyelitis or fracture is not seen but soft tissue swelling is clearly evident over the entirety of the second digit. IMPRESSION: Second digit prominent soft tissue swelling, no gas in the soft tissues. Small metallic foreign bodies as discussed. No acute trauma found. Moderate osteoarthritis incidentally noted. Dictated by: Artur Potter M.D. on 01/27/2017 at 17:53 Approved by: Artur Potter M.D. on 01/27/2017 at 17:55 Assessment & Plan #Purulent acute Left index finger infection/cellulitis, active, present on admission - WBC 16.7 on admit, 12.3 this am - X-ray showed: 2 small metallic structures within soft tissues lateral to the proximal phalanx of the second digit, and a similar appearing structure superimposed on the distal aspect of the fourth proximal phalanx also laterally. The appearance may indicate prior metal working in this circumstance. Underlying osteomyelitis or fracture is not seen but soft tissue swelling is clearly evident over the entirety of the second digit. Moderate osteoarthritis incidentally noted. - Dr. Rodney Robb orthopedic surgery consulted and hopes to do surgery today, son hasn't arrived yet to give consent (and not answering phone) - Patient currently on IV normal saline at 85 ML's per hour maintenance. - Patient made nothing by mouth for possible surgical procedure with orthopedic surgery - Patient is status post I&D in the ED with culture of the purulent material recovered. 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 A slight degree of pulmonary edema conceivably could be superimposed. - Likely secondary infected left index finger - UA ordered to rule out possible urinary tract infection given patient's underlying dementia, not yet done - Continue antibiotic Unasyn as previously stated - Infectious disease consulting #Normocytic normochromic anemia, chronicity unknown, present on admission - H/H was 13.0/40.1, and MCV of 87.9, MCH 28.5, MCHC 32.4 - dropped to 11.7 this am after IVF - recheck in am #Hyperglycemia, present on admission -Glucose 133 on admission, 95 this am - Hemoglobin A1c 5.7 - no rx needed Chronic Problems include #Hypertension, chronic, presumed stable. SBP mostly 160's here - Continue home medications metoprolol 25 mg but increase from daily to BID #Dementia, presumed stable Disposition: Admitted to in patient service with expected length of stay greater than 2 days, secondary to severity of presenting symptoms, treatment plan, complexity of clinical work up, and risk of adverse events. CODE STATUS: Full code PCP: No current PCP DVT PE prophylaxis: SCD's/Enoxiparin/SubQ heparin Q8H Contact: Larry patient's son VTE Mechanical Devices: Intermittant Pneumatic CD Marjan Bauer MD Jan 28, 2017 12:06
--- NOTE | 2017-01-28 12:23 | NUR ---
surgical consent with patient's dementia history, he is unable to sign consent form for surgery. Discussed with Dr Robb about having patient's son sign consent form. I have called son's number several times over the last couple hours and only getting a message that "the person you are trying to reach is unavailable" message. unable to leave any message. I've called patient's contact number as well without success. I will continue to call number until son is reached.
--- NOTE | 2017-01-28 13:44 | CONS ---
[address] [address] CONSULTATION REPORT PATIENT: LIZETH GOMEZ : 1930 MR#: [id number] ADMIT: 01/27/2017 JOB ID: [id number] DATE OF SERVICE: 01/28/2017 INFECTIOUS DISEASE CONSULTATION: I thank Dr. Mercedes for this timely consult. REASON FOR CONSULTATION: Left 2nd finger infection. HISTORY OF PRESENT ILLNESS: The patient is a moderately demented 86-year-old gentleman. When I evaluated the patient early this afternoon, there was no one else present and the nurse told me they are having difficulty reaching his son to come in and provide history and surgical consents. Because of that I was restricted to the notes in the chart as well as speaking to the patient. The patient's history was quite vague. He said his left 2nd finger has been swelling and hurting for "a while." He says it is now warm, red and tender and he thinks this started after a logging accident. 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 So the exact mechanism of his finger injury remains unclear. 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 The patient said that aside from the finger he has been feeling well for his age. He tells me he has no fevers, chills or sweats. No sore throat. No significant cough, shortness of breath or chest pain. He does accurately state he lives with his son which I think is actually correct. Note that when the patient through the ED yesterday, January 27, limited incision and drainage of that left 2nd finger was done which produced a culture which is currently pending. Orthopedics has seen the patient and I think he should go to the OR for more extensive debridement of this fusiform infection of the left 2nd finger, but they are currently unable to find the son to get consent. PAST MEDICAL HISTORY: 1. Dementia. 2. Hypertension. 3. History of decubitus ulcer on the right buttock back in October. SOCIAL HISTORY: The patient states he was a smoker but it was a long time ago. He said he has always stayed away from alcohol and is a nondrinker. 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 FAMILY HISTORY: He states that there is no history of TB in his first-degree relatives. REVIEW OF SYSTEMS: Was done. Though it is not certain how useful it was in this gentleman with fairly advanced dementia, but he states he has no headache, no acute visual change, no sore throat or trouble swallowing. No significant cough or chest pain. No nausea, vomiting or diarrhea. He said he has no dysuria but he has had urinary frequency for years. He states he is able to walk though I did not see him do that here in the room. The remainder of the review of systems was noncontributory and negative as well. PHYSICAL EXAMINATION: Reveals a pleasant gentleman sitting in a chair next to the bed. He looks completely comfortable. His temperature is 36.7, and he has been afebrile since his admission yesterday. Pulse is in the 80s, respiratory rate 18, blood pressure 175/77. He is saturating well on room air. With respect to the mental status, the patient is oriented just to himself. He is unable to state where he is and has no idea about the year. He does know his birthday but seems uncertain about where he was born and he is very unclear about where he currently resides though he is certain it is with his son. Examination of the head reveals no trauma. The eyes are without conjunctivitis or scleral icterus. There is no temporal wasting. Oral cavity without thrush or hairy leukoplakia. No pharyngitis. Neck without adenopathy. Lungs quite clear posteriorly. Cardiac examination with a 2/6 systolic murmur heard best at the lower left sternal border. The abdomen is soft and nontender without organomegaly. The patient does not have a Bullock catheter and there is no suprapubic fullness, penile or scrotal abnormalities. The lower extremities are notable for some decreased pulses in the extremities, but they are reasonably well perfused and warm. The patient does not have any significant rash. The only real notable abnormality on his exam is his left 2nd finger. This is wrapped in a rather complex dressing and apparently is quite painful to remove and so I trusted the descriptions by the other physicians including Orthopedics in the chart. It said to show fusiform inflammation, erythema and clearly it is quite tender which I can appreciate through the dressing that is present. Neurologically, the patient moves everything, has reasonable strength. LABORATORIES: Include white count 17,000 yesterday, now 12. There is considerable left shift. His creatinine 1.07. Hemoglobin A1c 5.7. LFTs normal. Albumin 3.1. Micro studies include blood cultures that are negative from yesterday. The ED limited I and D yielded a few drops of pus that were sent to the micro lab shows rare polys and some gram positive cocci and it is already growing Staph aureus. IMPRESSION: This is an elderly gentleman with underlying dementia and hypertension who otherwise looks quite healthy. He presents with a left swollen, tender, erythematous 2nd finger of unknown duration and mechanism of injury. It seems clear that he needs incision and drainage and efforts are underway to get consent from his son so that the ortho team can take him to the OR today. We already have an identification of the infecting microorganism and this is a Staph aureus, though we do not yet know whether this is MRSA or MSSA. RECOMMENDATIONS: 1. Will send a MRSA swab of the nares. 2. We await the pending cultures and the results from today's surgery. 3. In view of the fact we already know this is a Staph aureus I think we can start to narrow the antibiotics. The patient is currently on Unasyn, which is a bit of a difficult antibiotic in his situation because they have to have a sitter with him in the room because he is grabbing at and playing with the IV. To simplify things, we will go ahead and switch to daptomycin as a once a day IV agent with great activity against Staph and strep. 4. When the patient is ready for discharge, we will either use oral antibiotics or perhaps a long-acting agent such as dalbavancin unless at surgery they find evidence of osteomyelitis, so I would not baires to put in a PICC line at this point. It would be very difficult to have a PICC line in this patient in any event, because I believe he would likely just pull it out once he was left unsupervised. Thank you very much for allowing me to see this patient.
--- NOTE | 2017-01-28 13:45 | NUR ---
to OR patient transferred to OR for I&D of finger wound. Son came in and consent signed.
[2017-01-28] MEDS ORDERED: Lactated Ringer's 1,000 ML IV ONE (13:47)
[2017-01-28] MEDS ORDERED: Bupivacaine-MPF 0.5% 30 mL Inj INFILTRATE ONE (14:33)
[2017-01-28] MEDS ORDERED: Lactated Ringer's 500 ML IV PRN (14:38)
[2017-01-28] MEDS ORDERED: Lactated Ringer's 1,000 ML IV SCH (14:38)
[2017-01-28] MEDS ORDERED: fentaNYL-PF 50 mCg/mL 2 mL Inj IVPUSH PRN (14:40)
[2017-01-28] MEDS ORDERED: Ondansetron 2 mg/mL 2 mL Inj IVPUSH PRN (14:40)
[2017-01-28] MEDS ORDERED: Phenylephrine 10,000 mCg/mL Inj IVPUSH PRN (14:40)
[2017-01-28] MEDS ORDERED: Atropine 0.4 mg/mL Inj IVPUSH PRN (14:40)
[2017-01-28] MEDS ORDERED: EPHEDrine Sulfate 50 mg/mL Inj IVPUSH PRN (14:40)
[2017-01-28] MEDS ORDERED: HYDROmorphone 1 mg/mL Inj IVPUSH PRN (14:40)
[2017-01-28] MEDS ORDERED: Dexamethasone 4 mg/mL Inj IVPUSH PRN (14:40)
--- NOTE | 2017-01-28 15:41 | NUR ---
Social Work: Attempted Initial Assessment D: EMR reviewed. Pt is a 86 y/o male admitted for finger infection per H&P. SW attempted to meet with pt at bedside to conduct initial assessment but pt was in OR. Pt's insurance is Medicare and [facility]. Pt's NOK is son, Lawson Dunn ([phone]). A: TBD once pt returns from OR P: Attempt to assess pt once pt returns from OR VERONIQUE Marcus
--- NOTE | 2017-01-28 16:17 | NUR ---
return from PACU received report from PACA at 1600hrs. patient returned to room 1022 at 1615hrs assumed care.
[2017-01-28] MEDS: DAPTOmycin Inj 500 MG in 0.9% Sodium Chloride 50 ML IV SCH (16:58)
--- NOTE | 2017-01-28 17:40 | OP ---
[address] [address] OPERATIVE REPORT PATIENT: LIZETH GOMEZ : 1930 MR#: [id number] ADMIT: 01/27/2017 JOB ID: [id number] DATE OF SURGERY: 01/28/2017 SURGEON: Rodney Robb MD HARDWARE TECHNICIAN: None. PREOPERATIVE DIAGNOSIS(ES): Left index finger infection over the middle and distal phalanges. ICD10 code S60.411A. POSTOPERATIVE DIAGNOSIS(ES): Left index finger infection over the middle and distal phalanges. ICD10 code S60.411A. PROCEDURE: Incision and drainage, superficial infection of left index finger over the middle and distal phalanges. CPT code 22004. ANESTHESIA: General plus metacarpal nerve block performed by surgeon for postoperative analgesia. DRAINS: None. COMPLICATIONS: None. ESTIMATED BLOOD LOSS: 3 mL. SPONGE AND NEEDLE COUNT: Correct. INDICATIONS: This is an 86-year-old male, who had some type of contusion to the hand, but he is not quite sure exactly what happened. He developed an infection of dorsal aspect status over the left index finger, over the middle and distal phalanges. The patient was seen by emergency department staff and they did aspirate a small amount and sent this fluid for culture yesterday. He was admitted for IV antibiotics. PROCEDURE IN DETAIL: Under adequate general anesthesia, a well-padded tourniquet was applied to the left upper extremity. Left arm was prepped and draped in sterile fashion. The arm was elevated but was not exsanguinated due to infection and it was inflated to 250 mmHg. A dorsal incision was fashioned over the distal portion of the middle phalanx and distal phalanx to the edge of the eponychial fold. There was purulent material and this was sent to Pathology. There was also some dermolysis and this skin that was peeling was surgically excised with scalpel. Any necrotic tissue and any purulent tissue or necrotic fat was removed. Cultures were sent. The wound was thoroughly irrigated with antibiotic solution with gentamicin. Some of the skin edges were sharply debrided. After the wound was thoroughly irrigated, clean gloves, clean instruments, and clean drapes were utilized. In order not to leave the central tendon exposed and possibly desiccate, I did loosely approximate the wound with a couple of horizontal mattress sutures of 4-0 nylon, leaving a couple of central and distal areas open that were packed with quarter-inch gauze. Xeroform was placed over the inflamed tissue leaving the central portion of the wound open and not occluded with Xeroform. Dry sterile gauze dressings were applied. Please note, tourniquet was released prior to packing the wound. Specimens were sent to Pathology including aerobic and anaerobic cultures. After the patient's hand was sterilely dressed, he was taken to recovery room in stable condition. Sponge and needle count correct. No complications. PLAN: The patient will continue to be on the hospitalist service and receive IV antibiotics, pending wound cultures. He will also need some outpatient wound care for dressing changes probably beginning on February 01. Infectious Disease should be consulted as to the extent of his antibiotics and the type of antibiotics. The patient may be followed back in the office in two weeks for suture removal.
--- NOTE | 2017-01-28 17:47 | NUR ---
confusion patient alert to self and occasionally place. he's been pleasantly confused. per son, mentation is close to his normal baseline. patient has attempted to pull at IV lines and dressing. 1:1 sitter at bedside throughout the day. patient returned from Surgery after I&D of left index finger. denies any pain or discomfort. continue to monitor.
--- NOTE | 2017-01-28 19:03 | PCM.ANEP1 ---
Post Anesthesia PACU Phase 1 Assessment Date of Service: Jan 28, 2017 Vital Signs Vital Signs Date Time Temp Pulse Resp B/P Pulse Ox O2 Delivery O2 Flow Rate FiO2 01/28/17 16:28 36.7 69 16 173/71 93 Nasal Cannula 2.00 01/28/17 15:56 36.6 71 18 136/63 95 Nasal Cannula 2 01/28/17 15:45 78 21 142/64 93 Room Air 01/28/17 15:40 36.5 79 24 151/59 100 BLOW BY 7 01/28/17 15:28 76 18 158/60 98 Simple Mask 7 01/28/17 15:20 89 16 109/ 97 Simple Mask 7 01/28/17 15:15 72 17 109/42 97 Simple Mask 7 01/28/17 15:12 37.2 128/54 Anesthetic Administered: GA Level of Alertness: Sleepy, easy to arouse SINGH's with Equal Strength: Yes Pain: No Nausea or Vomiting: No CV Function & Hydration Stable: Yes Airway Device: none Oxygen Delivery: Nasal Cannula Lungs: Clear to Auscultation, Normal Air Movement Dermatome Level: Full Sensation Summary Patient had some emergence delirium but doing better with reassurance. PACU Phase 2 Assessment Complications: No Follow up Care: No Patient Instructions Provided: N/A Dell Rangel MD Jan 28, 2017 19:03
[2017-01-29] VITALS (7 sets, daily range): BP systolic 160–189; BP diastolic 58–80; PULSE 62–82; RESP 16–18; O2SAT 93–96
[2017-01-29] MEDS: 0.9% Sodium Chloride 1,000 ML IV SCH ×3 (01:25→13:01)
--- NOTE | 2017-01-29 04:24 | NUR ---
Activity Pt. ambulates in room well. Pt. has sitter, as pt. can pull at lines and dressing. Pt. is alert and oriented x1. Extremity elevated during assessment, however pt. constantly moves around in bed, and is not being cooperative with elevating the extremity. Pt. denies pain. Will continue to monitor.
[2017-01-29 06:43] LABS: BASOPHILS % (AUTO) 0.3 % (0-3); EOSINOPHILS % (AUTO) 3.8 % (0-5); MONOCYTES % (AUTO) 7.1 % (4-12); Mean Corpuscular Hemoglobin 28.6 pg (27.0-35.0); Mean Corpuscular Volume 89.2 fL (81-100); NEUTROPHILS % (AUTO) 74.1 % (40-74); Platelet Count 256 bil/L (150-400)
--- NOTE | 2017-01-29 11:58 | PCM.PNORTH ---
Subjective Date of Service: Jan 29, 2017 Visit Information: Reason for Visit Finger Infection Surgery/Surgery Date I & D LEFT INDEX FINGER 01/28/17 Post-Op Day # 1 Date of Admission: Jan 27, 2017 at 17:38 Hospital Day # Subjective Patient is pleasantly confused and states he is having no pain. He does make references to going out into the og and states that's why his bandages are messy. He has no concerns at this time. Patient has a sitter and she states he has been messing with his bandages frequently. Postop General: No Complaints, No Shortness of Breath, No Chest Pain Pain Management: PO Objective Exam Objective Patient sitting up in chair watching TV. Sitter on couch beside him. Vital Signs and I/O Vital Sign - Last Date Time Temp Pulse Resp B/P Pulse Ox O2 Delivery O2 Flow Rate FiO2 01/29/17 08:30 36.7 70 16 175/73 96 Nasal Cannula 1.00 Intake and Output 01/28/17 01/28/17 01/29/17 Cumulative From/Thru 15:00 23:00 07:00 01/27/17 16:03 - 01/29/17 06:05 Intake Total 500 ml 1278 ml 600 ml 2778 ml Output Total 500 ml 600 ml 1300 ml Balance 500 ml 778 ml 0 ml 1478 ml Intake Oral 400 ml 600 ml 1000 ml IV Total 500 ml 878 ml 1778 ml Output Urine Total 500 ml 600 ml 1300 ml # Voids 3 3 7 # Bowel Movements 1 1 Lab & Micro Results Laboratory Tests Test 01/29/17 04:05 01/29/17 06:21 Hold Urine Received (Received) White Blood Count 11.4th/mm3 (3.8-10.1) Red Blood Count 4.44mil/mm3 (4.40-5.80) Hemoglobin 12.7g/dL (13.8-17.2) Hematocrit 39.6% (41.0-50.0) Mean Corpuscular Volume 89.2fL (81-100) Mean Corpuscular Hemoglobin 28.6pg (27.0-35.0) Mean Corpuscular Hemoglobin Concent 32.1% (32.0-37.0) Red Cell Distribution Width 13.6% (12.3-15.4) Platelet Count 256bil/L (150-400) Neutrophils (%) (Auto) 74.1% (40-74) Lymphocytes (%) (Auto) 14.4% (14-46) Monocytes (%) (Auto) 7.1% (4-12) Eosinophils (%) (Auto) 3.8% (0-5) Basophils (%) (Auto) 0.3% (0-3) Sodium Level 140mEq/L (134-144) Potassium Level 3.9mEq/L (3.5-5.2) Chloride Level 107mEq/L (97-108) Carbon Dioxide Level 19mmol/L (18-29) Blood Urea Nitrogen 17mg/dL (8-27) Creatinine 1.07mg/dL (0.76-1.27) Estimat Glomerular Filtration Rate 69mL/min (>59) Glucose Level 171mg/dL (60-99) Calcium Level 8.6mg/dL (8.5-10.1) Total Creatine Kinase 55U/L (21-232) Microbiology 01/27/17 Blood Culture - Preliminary, Resulted NO GROWTH AFTER 24 HOURS 01/28/17 MRSA (PCR) - Final, Complete 01/28/17 Gram Stain - Final, Resulted 01/28/17 Culture & Sensitivity, Resulted Pending 01/28/17 Anaerobic Culture, Resulted Pending Result Diagram: 01/29/1762001/29/17 06 General Appearance: Alert, Oriented X3, Cooperative, No Acute Distress Extremities: Distal Pulses Palpable, No Compartment Syndrom Noted Postop Sensory Motor: Distal Motor Intact, Movement in Fingers, Distal Sensation Intact, NVI Distally SURGICAL WOUND : Wound Location/Description Perioperative dressings intact and dry, although it is clear they have been unwrapped and rewrapped or picked at by patient. Incision General Appearance: No Direct Observation Activity: Ambulate with PT (NWB with L index finger) Assessment & Plan Impression POD#1 left index finger I&D Problems: Plan Weightbearing: NWB with left index finger Wound care: Keep dressings intact until wound care can see patient. Recommend wound care see patient TOMORROW (01/30/17). Dressings can be changed, packing removed, and wound redressed. Recommend bulky dressing to limit finger motion and tension on wound. Analgesia: Continue PO tylenol Discharge plan: Discharge home vs SNF when medically cleared. I suspect he will be here another day on IV antibiotics. Follow-up plan: In 2 weeks at [facility] with JOELLE for wound check and suture removal in 2 weeks. Cornelia Vigil PA-C Jan 29, 2017 11:58
--- NOTE | 2017-01-29 15:30 | NUR ---
POD1 Patient is alert and oriented X 1 only. Confused. Tylenol administered for generalized discomfort. Tolerating liquids PO and his diet well. Denies nausea. No emesis noted. Denies SOB. Patient has been able to ambulate with SBA in the room. Sat in the chair for a couple of hours, several times this shift. Tolerated activity well. Dressing is CDI with old shadowing noted. Patient has been picking on his dressing. Sitter is at the bedside for safety. (I.E: Patient needs frequent reminder not to pull off his dressing/his IV line). Voiding without any problems. Senna administered for no BM X 3 days, which was effective. Per sitter patient had a BM this shift. Care continues.
[2017-01-29] MEDS: DAPTOmycin Inj 500 MG in 0.9% Sodium Chloride 50 ML IV SCH (16:17)
--- NOTE | 2017-01-29 16:20 | NUR ---
Social Work: Attempted Initial Assessment D: EMR reviewed. Pt is on day 2 of hospitalization. SW attempted to meet with pt at bedside to conduct initial assessment after attempt yesterday when pt was in OR. Pt is not an accurate historian at this time. Pt has Dementia at baseline. SW called pt's NOK, son Lawson Dunn ([phone]) and left voicemail. SW will continue to attempt to assess pt and reach pt's NOK. A: TBD P: Attempt to assess pt by reaching NOK. Pt is not an accurate historian at this time. VERONIQUE Marcus
--- NOTE | 2017-01-29 16:20 | PCM.PNMED ---
Subjective Date of Service Jan 29, 2017 Subjective No complaints Exam Vital Signs Vital Sign - Last Date Time Temp Pulse Resp B/P Pulse Ox O2 Delivery O2 Flow Rate FiO2 01/29/17 15:40 160/78 01/29/17 15:25 36.7 62 18 96 Room Air 01/29/17 08:30 1.00 Intake and Output 01/28/17 01/28/17 01/29/17 Cumulative From/Thru 15:00 23:00 07:00 01/27/17 16:03 - 01/29/17 06:05 Intake Total 500 ml 1278 ml 600 ml 2778 ml Output Total 500 ml 600 ml 1300 ml Balance 500 ml 778 ml 0 ml 1478 ml Intake Oral 400 ml 600 ml 1000 ml IV Total 500 ml 878 ml 1778 ml Output Urine Total 500 ml 600 ml 1300 ml # Voids 3 3 7 # Bowel Movements 1 1 Exam General: Alert, cheerful, no acute distress Heart: Regular Lungs: Clear Abdomen: Soft, non-tender Extremities: No pedal edema, left index finger with dressing Lab and Diagnostics Result Diagram: 01/29/1762001/29/17620 X-Rays, CTs and MRIs Date of Service: 01/27/171626 PROCEDURE: X-RAY CHEST, TWO VIEWS FINDINGS: Surgical changes and devices: None. Lungs and pleura: No pleural effusions or pneumothorax. Lungs are abnormal with reduced inspiratory volume and mild elevation of the right hemidiaphragm as has been previously the case. There is what appears to be mild bibasilar atelectasis rather than pneumonia.. Mediastinum: Mediastinal contours are normal. Heart size is normal. Bones and chest wall: No suspicious bony abnormalities. Soft tissues appear unremarkable. IMPRESSION: Mild bibasilar atelectasis in the setting of reduced inspiratory volume and chronic mild asymmetric elevation of the right hemidiaphragm. A slight degree of pulmonary edema conceivably could be superimposed. Dictated by: Artur Potter M.D. on 01/27/2017 at 17:52 Approved by: Artur Potter M.D. on 01/27/2017 at 17:53 Date of Service: 01/27/177 PROCEDURE: X-RAY FINGERS, TWO VIEWS INDICATIONS: low sat Bones: No fractures or dislocations. No suspicious bony lesions. Soft tissues: No suspicious soft tissue calcifications but there are 2 small metallic structures within soft tissues lateral to the proximal phalanx of the second digit, and a similar appearing structure superimposed on the distal aspect of the fourth proximal phalanx also laterally. The appearance may indicate prior metal working in this circumstance. Underlying osteomyelitis or fracture is not seen but soft tissue swelling is clearly evident over the entirety of the second digit. IMPRESSION: Second digit prominent soft tissue swelling, no gas in the soft tissues. Small metallic foreign bodies as discussed. No acute trauma found. Moderate osteoarthritis incidentally noted. Dictated by: Artur Potter M.D. on 01/27/2017 at 17:53 Approved by: Artur Potter M.D. on 01/27/2017 at 17:55 Assessment & Plan #Purulent acute Left index finger infection/cellulitis, active, present on admission - WBC 16.7 on admit, 11.4 this am - X-ray showed: 2 small metallic structures within soft tissues lateral to the proximal phalanx of the second digit, and a similar appearing structure superimposed on the distal aspect of the fourth proximal phalanx also laterally. The appearance may indicate prior metal working in this circumstance. Underlying osteomyelitis or fracture is not seen but soft tissue swelling is clearly evident over the entirety of the second digit. Moderate osteoarthritis incidentally noted. - Patient is status post I&D in the ED with culture of the purulent material recovered. Culture with staph aureus, sens pending - Dr. Rodney Robb orthopedic surgery did I & D January 28 - We will continue the Unasyn IV antibiotics started in the ED - initial wound culture with s. aureus - sens still pending - Infectious disease consulting, Dr. 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 SBP 160-186 - Continue home medication of metoprolol 25 mg but increased from daily to BID yesterday #Dementia, presumed stable Disposition: Admitted to in patient service with expected length of stay greater than 2 days, secondary to severity of presenting symptoms, treatment plan, complexity of clinical work up, and risk of adverse events. CODE STATUS: Full code PCP: No current PCP DVT PE prophylaxis: SCD's/Enoxiparin/SubQ heparin Q8H Contact: Larry patient's son VTE Mechanical Devices: Intermittant Pneumatic CD Marjan Bauer MD Jan 29, 2017 16:20 Marjan Bauer MD Jan 29, 2017 16:20
[2017-01-30] VITALS (7 sets, daily range): BP systolic 163–210; BP diastolic 68–100; PULSE 75–99; RESP 18–22; O2SAT 93–99
--- NOTE | 2017-01-30 06:07 | NUR ---
HTN/dressing pt was hypertensive this shift with SBPs in the 180s. MD was made aware via [employer] page. this AM he had a BP of 210/100. MD notified who ordered 5mg of IV Labetolol x1. Labetolol was adminstered to pt and report passed to oncoming nurse, who will reassess. pt had a 1:1 sitter this shift. but he still managed to remove his dressing including packing multiple times. finger was cleaned with NS and dressings redone. care continues.
[2017-01-30] MEDS ORDERED: Labetalol 5 mg/mL 20 mL Inj IV ONE (06:40)
--- NOTE | 2017-01-30 09:49 | PCM.PNORTH ---
Subjective Date of Service: Jan 30, 2017 Visit Information: Reason for Visit Finger Infection Surgery/Surgery Date I & D LEFT INDEX FINGER 01/28/17 Post-Op Day # 2 Date of Admission: Jan 27, 2017 at 17:38 Hospital Day # Subjective Patient complains that the dressing does not stay in place. The sitter with him states that he is continually trying to pull off the dressing. Postop General: No Complaints, No Shortness of Breath, No Chest Pain Pain Management: PO Objective Exam Objective Patient is seen sitting up in a chair. The dressing has been removed by Domingo of the wound care team. Vital Signs and I/O Vital Sign - Last Date Time Temp Pulse Resp B/P Pulse Ox O2 Delivery O2 Flow Rate FiO2 01/30/17 06:31 75 210/100 01/30/17 04:47 36.7 18 95 Room Air 01/29/17 08:30 1.00 Intake and Output 01/29/17 01/29/17 01/30/17 Cumulative From/Thru 15:00 23:00 07:00 01/27/17 16:03 - 01/30/17 04:47 Intake Total 1132 ml 1444 ml 900 ml 6254 ml Output Total 1300 ml Balance 1132 ml 1444 ml 900 ml 4954 ml Intake Oral 1444 ml 900 ml 3344 ml IV Total 1132 ml 2910 ml Output Urine Total 1300 ml # Voids 5 16 28 # Bowel Movements 2 1 4 Lab & Micro Results Microbiology 01/27/17 Blood Culture - Preliminary, Resulted No growth at 2 days; culture examined... 01/28/17 MRSA (PCR) - Final, Complete 01/28/17 Gram Stain - Final, Resulted 01/28/17 Culture & Sensitivity, Resulted Pending 01/28/17 Anaerobic Culture, Resulted Pending Result Diagram: 01/29/17 0621 01/29/17 0621 Postop Sensory Motor: Distal Motor Intact, Movement in Fingers SURGICAL WOUND : Wound Location/Description Left index finger: Sutures are intact. Packing is been removed. There are 2 small superficial wounds. Remainder of the wound is closed with sutures. There is no purulence seen. There is minimal erythema around the edges of the wound. It is tender to the touch. Activity: Ambulate with PT (NWB with L index finger) Assessment & Plan Impression POD #2 left index finger I&D Problems: Plan Wound care team will apply a new dressing today and developed plan for subsequent dressing changes. Patient will follow up with wound care clinic for future dressing changes Wound cultures are still pending Dr. Christina will determine antibiotic selection and plan. Patient will follow up with Dr. Rodney Robb in 2 weeks at the orthopedic clinic We appreciate the medical team, Dr. Christina, and Domingo of the wound care team for their involvement with this patient. Pain Management: Tylenol LaplaceIsela Diaz PA-C Jan 30, 2017 09:49
--- NOTE | 2017-01-30 10:57 | PROG NOTE ---
[address] [address] PROGRESS NOTE PATIENT: LIZETH GOMEZ : 1930 MR#: [id number] ADMIT: 01/27/2017 JOB ID: [id number] DATE: 01/30/2017 REASON FOR FOLLOWUP: Left second finger methicillin sensitive Staphylococcus aureus infection. INTERVAL HISTORY: Recall this is the elderly gentleman with significant dementia and very little else in the way of medical problems who presented with a swollen tender left distal second finger. The patient today is awake, alert, sitting up in a chair and denies complaint. He says he has a little pain around his distal left second finger, but otherwise feels fine. Denies any fevers, chills, cough, nausea, vomiting, or diarrhea. Recall that he is quite demented so it is hard to know how useful this history is, but at this point he certainly denies complaint. PHYSICAL EXAMINATION: Reveals an afebrile, elderly gentleman, temperature 36.7, pulse 75, respiratory rate 18, blood pressure is 210/100. He is saturating well on room air and certainly looks very comfortable. The lungs are clear. Cardiac tones without new murmur. Abdomen benign. The left second finger has a considerable amount of erythema and some loss of tissue over the dorsal distal second finger starting at about the PIP and extending out to the nail. He does have reasonable motion, however in this finger without obvious involvement of any of the joints. LABORATORIES: Include white count which has dropped to 11.4 as of yesterday, not repeated today. Creatinine yesterday 1.07. Culture is growing a Staph aureus from the finger. Still we do not know if it is MRSA or MSSA, but her MRSA screen of the nares is negative. IMPRESSION: This patient seems to be doing very well. I evaluated him at the bedside with the wound management team. RECOMMENDATIONS: 1. I would keep him at least one more day until we have the susceptibilities on the Staph. 2. For now will continue him on daptomycin IV once a day. 3. Will probably discharge him on oral antibiotics within the next day or so depending on his progress.
--- NOTE | 2017-01-30 11:03 | NUR ---
Wound note. 86 yo male s/p I&D of left index finger infection over the middle and distal phalanges on 01/28 by orthopedic service line. Pleasantly confused male in no acute distress, removal of dressing reveals approximately 2.5 cm long incision on the dorsal aspect of the index finger with [address], wound edges are not approximated and the wound bed has possible tendon sheath visible in the base, erythema is present to the level of the PIP, drainage is scant, no pus,no tunneling. Cleaned wound with saline and gauze, Dr Christina was able to visualize wound during wound care. Cultures reviewed. Redressed with hydrogel to keep tendon moist, Xeroform for antimicrobial protection and mepilex foam dressing with hypafix tape to hopefully keep patient from removing dressing as he is want to do. Will change dressing in 48 hrs.
--- NOTE | 2017-01-30 12:11 | PCM.PNMED ---
Subjective Date of Service Jan 30, 2017 Subjective no complaints Exam Vital Signs Vital Sign - Last Date Time Temp Pulse Resp B/P Pulse Ox O2 Delivery O2 Flow Rate FiO2 01/30/17 10:14 77 189/89 01/30/17 04:47 36.7 18 95 Room Air 01/29/17 08:30 1.00 Intake and Output 01/29/17 01/29/17 01/30/17 Cumulative From/Thru 15:00 23:00 07:00 01/27/17 16:03 - 01/30/17 04:47 Intake Total 1132 ml 1444 ml 900 ml 6254 ml Output Total 1300 ml Balance 1132 ml 1444 ml 900 ml 4954 ml Intake Oral 1444 ml 900 ml 3344 ml IV Total 1132 ml 2910 ml Output Urine Total 1300 ml # Voids 5 16 28 # Bowel Movements 2 1 4 Exam General: Alert, no acute distress Heart: Regular Lungs: Clear Abdomen: Soft, non-tender Extremities: No pedal edema, left index finger with dressing in place IVs and Medications Medications Reviewed: Medications were reviewed in detail Lab and Diagnostics Result Diagram: 01/29/1762001/29/17620 X-Rays, CTs and MRIs Date of Service: 01/27/171626 PROCEDURE: X-RAY CHEST, TWO VIEWS FINDINGS: Surgical changes and devices: None. Lungs and pleura: No pleural effusions or pneumothorax. Lungs are abnormal with reduced inspiratory volume and mild elevation of the right hemidiaphragm as has been previously the case. There is what appears to be mild bibasilar atelectasis rather than pneumonia.. Mediastinum: Mediastinal contours are normal. Heart size is normal. Bones and chest wall: No suspicious bony abnormalities. Soft tissues appear unremarkable. IMPRESSION: Mild bibasilar atelectasis in the setting of reduced inspiratory volume and chronic mild asymmetric elevation of the right hemidiaphragm. A slight degree of pulmonary edema conceivably could be superimposed. Dictated by: Artur Potter M.D. on 01/27/2017 at 17:52 Approved by: Artur Potter M.D. on 01/27/2017 at 17:53 Date of Service: 01/27/177 PROCEDURE: X-RAY FINGERS, TWO VIEWS INDICATIONS: low sat Bones: No fractures or dislocations. No suspicious bony lesions. Soft tissues: No suspicious soft tissue calcifications but there are 2 small metallic structures within soft tissues lateral to the proximal phalanx of the second digit, and a similar appearing structure superimposed on the distal aspect of the fourth proximal phalanx also laterally. The appearance may indicate prior metal working in this circumstance. Underlying osteomyelitis or fracture is not seen but soft tissue swelling is clearly evident over the entirety of the second digit. IMPRESSION: Second digit prominent soft tissue swelling, no gas in the soft tissues. Small metallic foreign bodies as discussed. No acute trauma found. Moderate osteoarthritis incidentally noted. Dictated by: Artur Potter M.D. on 01/27/2017 at 17:53 Approved by: Artur Potter M.D. on 01/27/2017 at 17:55 Assessment & Plan #Purulent acute Left index finger infection/cellulitis, active, present on admission - WBC 16.7 on admit, 11.4 yesterday am - X-ray showed: 2 small metallic structures within soft tissues lateral to the proximal phalanx of the second digit, and a similar appearing structure superimposed on the distal aspect of the fourth proximal phalanx also laterally. The appearance may indicate prior metal working in this circumstance. Underlying osteomyelitis or fracture is not seen but soft tissue swelling is clearly evident over the entirety of the second digit. Moderate osteoarthritis incidentally noted. - Patient is status post I&D in the ED with culture of the purulent material recovered. Culture with staph aureus, sens pending - Dr. Rodney Robb orthopedic surgery did I & D January 28 - Initially on Unasyn IV started in the ED, then January 28 Dr Christina changed him to IV Daptomycin - wound culture with MRSA (sens today) - per Dr. Christina, Infectious disease, continue Daptomycin, possibly home tomorrow on oral antibiotic #Hypertension, chronic, currently not adequately controlled - Continue home medication of metoprolol 25 mg but increased from daily to BID January 27 - BP 210/100 this - Given Amlodipine 5 mg and 2 hrs later BP 190/96 - Will increase metoprolol to 37.5 mg bid Addendum at 1550: BP 204/80, will give addit 5 mg dose of Amlodipine and tomorrow incr to 10 mg daily #Elevated creatinine, chronicity unknown, present on admission (1.31), - improved to 1.07 January 28 after some IVF - 1.07 again Nohemy 2 so IV normal saline at 85 ML's per hour DC'd #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, no acute ST segment changes seen #Normocytic normochromic anemia, chronicity unknown, present on admission - H/H was 13.0/40.1, and MCV of 87.9, MCH 28.5, MCHC 32.4 - dropped to 11.7 january 28 after IVF, - recheck this am and 12.7 #Hyperglycemia, present on admission -Glucose 133 on admission, 95 next am - Hemoglobin A1c 5.7 - no rx needed #Dementia, presumed stable Disposition: Possibly home tomorrow on oral antibiotics pending Dr Christina recommendation CODE STATUS: Full code PCP: No current PCP DVT PE prophylaxis: SCD's/Enoxiparin/SubQ heparin Q8H Contact: Larry patient's son VTE Mechanical Devices: Intermittant Pneumatic CD Marjan Bauer MD Jan 30, 2017 12:11
--- NOTE | 2017-01-30 14:00 | NUR ---
Social Work: Readiness for Discharge D: EMR reviewed. Pt is a 86 y/o male admitted for finger infection per H&P. SW attempted to conduct initial assessment with pt but pt is not oriented to person, place, or time. Pt has dementia at baseline. SW placed T/C to pt's son/DPOA Lawson Urias ([phone]) to complete initial assessment. Pt's son provided DPOA/advanced directive ppw and ppw is in pt's chart. Pt's insurance is Medicare and [employer]. Pt's PCP is Gabe Sanon MD. Pt has no hx of HH or a SNF. Pt does not have LTC insurance. Pt has VA benefits but is not service connected with the VA. Pt is total assist with ADLs. Pt owns and uses a cane to ambulate but does not own or use any other DME. Pt does not drive. Pt lives with his son and [id number] in a single story home with 0 steps to enter in [employer]. Pt's son stated that him and his care for pt 20/02 at their home where pt lives. Pt's son stated that pt's dementia has declined since his and sister . Pt's son stated that him and his are able to care for pt (his was a caregiver for [id number] before she passed) but that pt's mental status has been declining recently. Pt's son stated that he is still able to care for pt but is looking into memory care options for the future. ZULEIKA confirmed that pt's son will arive to hospital today and SW will provide senior resource guide and [facility] discharge planning checklist guide. Pt's son states that he has difficulty bathing pt because pt resists bathing on occasion. Pt's son stated they he is still able to bathe him at this point but is concerned that may change if pt's mental status continues to decline. Per MD request, ZULEIKA asked if pt's son was able to administer pt's required PO medications every 12 hours. Pt's son stated he was able to do this as he or his will be home with pt regardless. ZULEIKA identified a possible need for a HH VOICE PATHOLOGIST for bathing and RN for wound care/medication management/vitals. ZULEIKA consulted with MD. SW will await MD orders to pursue HH options. A: Pt who has dementia at baseline. P: Pt to return home via POV with son today. Pt has 20/02 care from family he lives with. SW addressed potential HH need identified in assessment. SW consulted MD and will await orders to pursue HH discharge plan. VERONIQUE Marcus Addendum: 01/30/17 at 1413 by CESAR WINSTON Amended: Links added.
--- NOTE | 2017-01-30 14:13 | NUR ---
Pt's son gave verbal consent to sign KATALINA
--- NOTE | 2017-01-30 14:45 | NUR ---
Activity Patient up with SBA with cane. Denies pain and nausea at this time. Up in chair. Patient repositions self for comfort. Sitter in room next to patient. Call light and tray table within reach. Will continue to monitor patient hourly.
[2017-01-30] MEDS: DAPTOmycin Inj 500 MG in 0.9% Sodium Chloride 50 ML IV SCH (14:55)
[2017-01-30] MEDS ORDERED: LORazepam 0.5 mg Tablet PO PRN (16:20)
--- NOTE | 2017-01-30 19:36 | NUR ---
Behavior/IV/BP Pt's was pulling on IV line and it was partially removed and reddened. Per MD okay to remove IV line and not put a new one in. Pt is switching to PO antibiotics tomorrow. Pt's BP's elevated over shift and PO medications given with only slight improvement. Pt had increasingly combative behavior over afternoon, refusing to take medications, asking where son was and stating "I just need to get out of here, show me where the door is." Pt walking in hallways, going into other pt's rooms, getting aggressive with staff and swinging arms. Lino jose armando called on pt and he was place in bilateral soft wrist restraints. IM medication given. Was able to give PO medications when son was here. Son went home stating he didn't think there was much he could do for pt and stated he didn't think his Dad even recognized him today. Bed in low, 1:[address], continue to monitor.
[2017-01-30] MEDS ORDERED: Haloperidol 5 mg/mL Inj IM PRN (20:50)
--- NOTE | 2017-01-31 04:41 | NUR ---
behavior/restraints at start of shift pt was in soft wrist restraints. however he was forcibly throwing his lower body over the rails of the bed and kicking at staff. he was placed in 4 point soft restraints but was still very agitated pulling and bucking against restraints. notified who ordered IM haldol. 1mg of IM haldol was given. over the course of a couple of hours pt calmed down pulling less and less on his restraints. he eventually fell asleep but was still restless calling out in his sleep and thrashing. Since 3 AM however has been sleeping peacefully. his restraints have been taken off throughout the shift to allow ROM and for brief changes. nurse could not get pt to take his night time metoprolol, but his BP at was improved. care continues. Addendum: 01/31/17 at 0746 by ADEN IZQUIERDO RN IV started in L arm per orders from Dr. Loco
[2017-01-31 06:44] VITALS: BP 169/68; PULSE 72; RESP 16; O2SAT 97
--- NOTE | 2017-01-31 08:38 | PROG NOTE ---
[address] [address] PROGRESS NOTE PATIENT: LIZETH GOMEZ : 1930 MR#: [id number] ADMIT: 01/27/2017 JOB ID: [id number] DATE: 01/31/2017 REASON FOR FOLLOWUP: Severe MRSA infection left second finger. INTERVAL HISTORY: Recall this is a demented gentleman with a fairly severe MRSA infection of his distal dorsal left second finger which was debrided on January [address] Robb. At this point, the patient has had continued problems with agitation as his dementia does not lend itself well to hospital stay. During the night he had a sitter and was in four-point restraints because of agitation. This morning I found him sleeping soundly. In fact he is sleeping so soundly he does not rouse even to exam or voice as apparently he was up and fairly active during the night. PHYSICAL EXAMINATION: Reveals an afebrile gentleman lying in bed, sleeping very soundly. Temp 36.7, and he has been afebrile. His pulse is 72, respiratory rate 16, blood pressure 169/68. He is saturating well on 2 L. Examination of the lungs reveals them to be clear. Cardiac tones without new murmur. Abdomen benign. The left second finger was undressed and carefully examined. The inflammation and infection in the distal dorsal 1/2 of the left second finger is little change. There is still considerable surrounding erythema and perhaps some mild tenderness though not enough to actually wake the patient up. In the center of this area there is a wound with some yellow slough in the base. LABORATORIES: Include white count 11,000. Creatinine 1.07. Blood cultures are negative. Wound culture grew MRSA as before. This is a relatively standard MRSA and therefore there are numerous options to treat the patient. IMPRESSION: Left distal finger fairly extensive methicillin resistant Staphylococcus aureus infection without evidence of osteomyelitis. RECOMMENDATIONS: 1. The patient could be discharged on any one of several oral agents. The simplest drugs to use here would probably be doxycycline 100 mg twice a day. Though one must be careful to use it while the patient is sitting upright as taking it while he is recumbent could result in an esophageal injury. Other drugs that wide though would be flying here would be clindamycin 300 q.i.d. I would not use Bactrim in this situation. 2. If oral therapies do not seem feasible in this demented gentleman, we could give him a single intravenous dose of oritavancin 1200 mg IV x1. This would be quite expensive, but would avoid the need for any oral or continued parenteral therapy. 3. My final recommendation on this patient is that he be discharged whenever the hospitalist sees fit on doxycycline 100 mg p.o. b.i.d. for two weeks or clindamycin 300 mg p.o. q.i.d. for 10 weeks, and I would slightly favor the doxycycline because of the risk of diarrhea with the clindamycin. If this is not feasible or the hospitalist elects to use oritavancin please give me a call and I will place that order. 4. ID will be signing off.
[2017-01-31 11:10] VITALS: BP 159/88; PULSE 68; RESP 20; O2SAT 99
--- NOTE | 2017-01-31 11:48 | PCM.PNORTH ---
Subjective Date of Service: Jan 31, 2017 Visit Information: Reason for Visit Finger Infection Surgery/Surgery Date I & D LEFT INDEX FINGER 01/28/17 Post-Op Day # Date of Admission: Jan 27, 2017 at 17:38 Hospital Day # Subjective Patient was sleeping but awakens easily. He responds to commands. He denies pain. His sitter reports he has been much more cooperative this morning. Last night he was quite agitated and had to be restrained. Postop General: No Complaints, No Shortness of Breath, No Chest Pain Pain Management: PO Objective Exam Objective Patient is seen laying in bed Vital Signs and I/O Vital Sign - Last Date Time Temp Pulse Resp B/P Pulse Ox O2 Delivery O2 Flow Rate FiO2 01/31/17 11:10 36.3 68 20 159/88 99 Nasal Cannula 2.00 Intake and Output 01/30/17 01/30/17 01/31/17 Cumulative From/Thru 15:00 23:00 07:00 01/27/17 16:03 - 01/31/17 06:44 Intake Total 875 ml 400 ml 7529 ml Output Total 350 ml 1378 ml 3028 ml Balance 525 ml -978 ml 4501 ml Intake Oral 800 ml 400 ml 4544 ml IV Total 75 ml 2985 ml Output Urine Total 350 ml 1378 ml 3028 ml # Voids 7 7 42 # Bowel Movements 0 0 4 Lab & Micro Results Microbiology 01/27/17 Blood Culture - Preliminary, Resulted No growth at 2 days; culture examined... 01/28/17 MRSA (PCR) - Final, Complete 01/28/17 Gram Stain - Final, Resulted 01/28/17 Culture & Sensitivity - Preliminary, Resulted Methicillin Resistant S Aureus 01/28/17 Anaerobic Culture - Preliminary, Resulted Result Diagram: 01/29/1762001/29/17 06 General Appearance: Alert, Cooperative, No Acute Distress Extremities: Distal Pulses Palpable Postop Sensory Motor: Distal Motor Intact, Movement in Fingers, NVI Distally SURGICAL WOUND : Wound Location/Description Dressing is removed. Sutures are intact. There is decreased erythema. No purulence seen. Recommend using only 1 smaller piece of Xeroform as the soft tissues are quite moist. Activity: Ambulate with PT (NWB with L index finger) Catheters: None Assessment & Plan Impression POD #3 Left index finger I&D Problems: Plan Cultures grew out MRSA Wound care plan and oral antibiotics per Dr. Christina. From ortho perspective, patient can be discharged today. Follow up with Dr. Robb in 2 weeks at [facility] Pain Management: Tylenol Isela Paml PA-C Jan 31, 2017 11:48
[2017-01-31] MEDS ORDERED: SULF1TAB7 PO (12:36)
[2017-01-31] MEDS ORDERED: METO25TA6 PO (12:36)
[2017-01-31] MEDS ORDERED: LISI-567 PO (12:36)
[2017-01-31] MEDS ORDERED: AMLO5TAB2 PO (12:36)
[2017-01-31] MEDS ORDERED: DOXY-232 PO (12:38)
--- NOTE | 2017-01-31 12:42 | PCM.DIMED ---
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 Home Health RN for wound care assistance at home christina. Change finger dressing daily and also whenever contaminated. Follow-up Provider: Gabe Sanon MD Follow-up with PCP in: 1 week Provider: Rodney Robb MD Follow-up in: 2 weeks Heather Sorensen MD Jan 31, 2017 12:42
--- NOTE | 2017-01-31 12:45 | NUR ---
Social Work: Discharge D: EMR reviewed. Pt is a 86 y/o male admitted for finger infection per H&P. SW received call from Lawson Dunn regarding pt's discharge plan and DPOA paperwork. Lawson arrived at the hospital and SW spoke with him and friend Deepa at bedside regarding discharge plan. Lawson is agreeable to pt discharging today. Discharge orders are active. Lawson provided SW with DPOA paperwork and Advance Directives, which KILN FEEDER copied and placed copy in pt's hard chart. Pt's son requested additional Senior Resource Guide, which KILN FEEDER provided and flagged [facility] information, encouraging pt's son to contact them for additional information and resources. Son agreeable. SW acknowledges orders from MD regarding HHRN for wound care and HOME CARE SCHEDULER for bathing. SW discussed these orders with Lawson and Deepa at bedside. Lawson is agreeable to HH care. Lawson also states that if pt has outpt Wound Care Clinic appointments then he would be able to transport the pt if necessary. Per MD and RN, pt's family will be trained on dressing changes as well. Lawson and Deepa both stated confidently that they are able to assist pt with dressing changes. Lawson reports his Lili is a PAINT RO[employer]ER [employer]SEMBLER and will also be able to assist. HHRN will be important to assist family in monitoring for infection and pain management. HH CHOICE LIST PROVIDED. Lawson and Deepa have no preference for HH company, SW consulted rotating vendor calendar and made referral to [facility]. T/C to [facility] liaison, regarding pt's referral. [facility] states they are able to accept pt and access given. F2F completed and faxed to [phone] and original placed in hard chart. [facility] is aware the pt is discharging today. Pt will discharge home on PO abx, per ID. Pt's family will be able to assist pt with taking these medications. Pt to discharge home with family to transport via POV and RN and HOME CARE SCHEDULER services through [facility]. A: Pt for whom HHRN and HOME CARE SCHEDULER is medically necessary. P: Pt to return home with [facility] RN and HOME CARE SCHEDULER, son to transport via POV. No additional discharge needs identified. Trish Farr MSW
--- NOTE | 2017-01-31 13:30 | NUR ---
Discharge New orders received for discharge home with son on [facility]. Reviewed discharge paper work, discharge instructions, dressing teaching to son and patient r/t dressing change to left finger, teaching r/t sign and symptoms to watch for, new prescriptions, monitoring blood pressure, and understood. POA signs paper work with patient's permission on discharge paper work. patient left unit approx [id number] home with son accompained by nursing staff. removed peripheral IV to left arm with out difficulty. care notes provided r/t Blood pressure medications and antibiotics. per son wound care appointment already set up for tomorrow.
--- NOTE | 2017-01-31 13:59 | PCM.DC.MED ---
Discharge Summary Date of Service Jan 31, 2017 Dates of Hospitalization Date of Hospital Admission Jan 27, 2017 at 17:38 Date of Discharge: Jan 31, 2017 Providers: Admitting Physician: Marjan Bauer MD Primary Care Physician: Gabe Sanon MD Attending Physician: Stickle. 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 Mercedes for this timely consult. REASON FOR CONSULTATION: Left 2nd finger infection. HISTORY OF PRESENT ILLNESS: The patient is a moderately demented 86-year-old gentleman. When I evaluated the patient early this afternoon, there was no one else present and the nurse told me they are having difficulty reaching his son to come in and provide history and surgical consents. Because of that I was restricted to the notes in the chart as well as speaking to the patient. The patient's history was quite vague. He said his left 2nd finger has been swelling and hurting for "a while." He says it is now warm, red and tender and he thinks this started after a logging accident. 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 So the exact mechanism of his finger injury remains unclear. 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 The patient said that aside from the finger he has been feeling well for his age. He tells me he has no fevers, chills or sweats. No sore throat. No significant cough, shortness of breath or chest pain. He does accurately state he lives with his son which I think is actually correct. Note that when the patient through the ED yesterday, January 27, limited incision and drainage of that left 2nd finger was done which produced a culture which is currently pending. Orthopedics has seen the patient and I think he should go to the OR for more extensive debridement of this fusiform infection of the left 2nd finger, but they are currently unable to find the son to get consent. PAST MEDICAL HISTORY: 1. Dementia. 2. Hypertension. 3. History of decubitus ulcer on the right buttock back in October. SOCIAL HISTORY: The patient states he was a smoker but it was a long time ago. He said he has always stayed away from alcohol and is a nondrinker. 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 FAMILY HISTORY: He states that there is no history of TB in his first-degree relatives. REVIEW OF SYSTEMS: Was done. Though it is not certain how useful it was in this gentleman with fairly advanced dementia, but he states he has no headache, no acute visual change, no sore throat or trouble swallowing. No significant cough or chest pain. No nausea, vomiting or diarrhea. He said he has no dysuria but he has had urinary frequency for years. He states he is able to walk though I did not see him do that here in the room. The remainder of the review of systems was noncontributory and negative as well. PHYSICAL EXAMINATION: Reveals a pleasant gentleman sitting in a chair next to the bed. He looks completely comfortable. His temperature is 36.7, and he has been afebrile since his admission yesterday. Pulse is in the 80s, respiratory rate 18, blood pressure 175/77. He is saturating well on room air. With respect to the mental status, the patient is oriented just to himself. He is unable to state where he is and has no idea about the year. He does know his birthday but seems uncertain about where he was born and he is very unclear about where he currently resides though he is certain it is with his son. Examination of the head reveals no trauma. The eyes are without conjunctivitis or scleral icterus. There is no temporal wasting. Oral cavity without thrush or hairy leukoplakia. No pharyngitis. Neck without adenopathy. Lungs quite clear posteriorly. Cardiac examination with a 2/6 systolic murmur heard best at the lower left sternal border. The abdomen is soft and nontender without organomegaly. The patient does not have a Bullock catheter and there is no suprapubic fullness, penile or scrotal abnormalities. The lower extremities are notable for some decreased pulses in the extremities, but they are reasonably well perfused and warm. The patient does not have any significant rash. The only real notable abnormality on his exam is his left 2nd finger. This is wrapped in a rather complex dressing and apparently is quite painful to remove and so I trusted the descriptions by the other physicians including Orthopedics in the chart. It said to show fusiform inflammation, erythema and clearly it is quite tender which I can appreciate through the dressing that is present. Neurologically, the patient moves everything, has reasonable strength. LABORATORIES: Include white count 17,000 yesterday, now 12. There is considerable left shift. His creatinine 1.07. Hemoglobin A1c 5.7. LFTs normal. Albumin 3.1. Micro studies include blood cultures that are negative from yesterday. The ED limited I and D yielded a few drops of pus that were sent to the micro lab shows rare polys and some gram positive cocci and it is already growing Staph aureus. IMPRESSION: This is an elderly gentleman with underlying dementia and hypertension who otherwise looks quite healthy. He presents with a left swollen, tender, erythematous 2nd finger of unknown duration and mechanism of injury. It seems clear that he needs incision and drainage and efforts are underway to get consent from his son so that the ortho team can take him to the OR today. We already have an identification of the infecting microorganism and this is a Staph aureus, though we do not yet know whether this is MRSA or MSSA. RECOMMENDATIONS: 1. Will send a MRSA swab of the nares. 2. We await the pending cultures and the results from today's surgery. 3. In view of the fact we already know this is a Staph aureus I think we can start to narrow the antibiotics. The patient is currently on Unasyn, which is a bit of a difficult antibiotic in his situation because they have to have a sitter with him in the room because he is grabbing at and playing with the IV. To simplify things, we will go ahead and switch to daptomycin as a once a day IV agent with great activity against Staph and strep. 4. When the patient is ready for discharge, we will either use oral antibiotics or perhaps a long-acting agent such as dalbavancin unless at surgery they find evidence of osteomyelitis, so I would not baires to put in a PICC line at this point. It would be very difficult to have a PICC line in this patient in any event, because I believe he would likely just pull it out once he was left unsupervised. Thank you very much for allowing me to see this patient. Jose Christina MD 01/28/[address] [place] [id number] CONSULTATION REPORT PATIENT: LIZETH GOMEZ : 1930 MR#: [id number] ADMIT: 01/27/2017 JOB ID: [id number] DATE OF SERVICE: 01/27/2017 ORTHOPEDIC CONSULTATION: REASON FOR CONSULTATION: Decision for surgery. CPT CODE: 64966-17 HISTORY OF PRESENT ILLNESS: I was asked to see 86-year-old male in orthopedic consultation for an infected left index finger. 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 First he states he smashed his left index finger a couple of weeks ago. Then he told me that someone put a special procedures tech blade in backwards on his special procedures tech, and he cut his finger. I asked the ED physician to take a small culture, since there appeared to be some purulent material over the dorsum of the finger. The patient was admitted and placed on IV antibiotics. PAST MEDICAL HISTORY: Positive for hypertension, dementia, prior history of decubitus ulcers in the right buttock, chronic skin sensation disorder. PRIOR SURGERIES: Hernia repair, appendectomy, tonsillectomy. SOCIAL HISTORY: Patient lives with a son. Does not smoke or drink. FAMILY HISTORY: Noncontributory. REVIEW OF SYSTEMS: Pertinent for painful left index finger with swelling and erythema. Review of systems completely reviewed, and appears to be negative, except for the painful left index finger. PHYSICAL EXAMINATION: 162 cm, 74 kg male. Patient is lying in bed. He appears to be somewhat confused as a historian. He has swelling and erythema of the dorsum of the left index finger from the middle phalanx to the distal phalanx. There is no erythema over the volar aspect of the finger. No cellulitis proximally, or lymphangitis over the forearm. The patient has decreased range of motion of the fingers secondary to pain and the infection. X-rays do show that he has a couple of very small foreign metal bodies over the index finger, which may be of indeterminate age since he also has a small 1-2 mm metal fragment over the ring finger. LABORATORY TESTING: White count 16,700, hemoglobin 13.0, hematocrit 40.1, and platelet count 238,000. Sodium 137, potassium 4.1, chloride 102, CO2 of 20, BUN 23, creatinine 1.31. Lactic acid 1.2. Liver function tests within normal limits. IMAGING: Chest x-ray shows some mild bibasilar atelectasis, but no other acute infiltrates. Finger x-ray showed soft tissue swelling of the left index finger, with two small metallic foreign bodies and some moderate degenerative osteoarthritis. The patient also has a small metal foreign body over the ring finger. This may be of indeterminate age. IMPRESSION: Left index finger infection. PLAN: The patient will be taken to the operating room on January 28, 2017, for incision, drainage, irrigation, and debridement of the infection. The patient does have some dementia. His son is going to be here tomorrow, and his son will also need to be available to counter-sign surgical consents. The patient is currently on Unasyn, and should stay on Unasyn. I did explain to the patient that he may require more than one surgery, but hopefully, will not; hopefully one surgery with some wound care might take care of the infection. Infectious Disease was also consulted. Rodney Robb MD 01/27/178 Procedures XRay, CTs & MRIs Date of Service: 01/27/17 1627 PROCEDURE: X-RAY CHEST, TWO VIEWS FINDINGS: Surgical changes and devices: None. Lungs and pleura: No pleural effusions or pneumothorax. Lungs are abnormal with reduced inspiratory volume and mild elevation of the right hemidiaphragm as has been previously the case. There is what appears to be mild bibasilar atelectasis rather than pneumonia.. Mediastinum: Mediastinal contours are normal. Heart size is normal. Bones and chest wall: No suspicious bony abnormalities. Soft tissues appear unremarkable. IMPRESSION: Mild bibasilar atelectasis in the setting of reduced inspiratory volume and chronic mild asymmetric elevation of the right hemidiaphragm. A slight degree of pulmonary edema conceivably could be superimposed. Dictated by: Artur Potter M.D. on 01/27/2017 at 17:52 Approved by: Artur Potter M.D. on 01/27/2017 at 17:53 Date of Service: 01/27/17 1627 PROCEDURE: X-RAY FINGERS, TWO VIEWS INDICATIONS: low sat Bones: No fractures or dislocations. No suspicious bony lesions. Soft tissues: No suspicious soft tissue calcifications but there are 2 small metallic structures within soft tissues lateral to the proximal phalanx of the second digit, and a similar appearing structure superimposed on the distal aspect of the fourth proximal phalanx also laterally. The appearance may indicate prior metal working in this circumstance. Underlying osteomyelitis or fracture is not seen but soft tissue swelling is clearly evident over the entirety of the second digit. IMPRESSION: Second digit prominent soft tissue swelling, no gas in the soft tissues. Small metallic foreign bodies as discussed. No acute trauma found. Moderate osteoarthritis incidentally noted. Dictated by: Artur Potter M.D. on 01/27/2017 at 17:53 Approved by: Artur Potter M.D. on 01/27/2017 at 17:55 Invasive Procedures [address] [address] OPERATIVE REPORT PATIENT: LIZETH GOMEZ : 1930 MR#: [id number] ADMIT: 01/27/2017 JOB ID: [id number] DATE OF SURGERY: 01/28/2017 SURGEON: Rodney Robb MD JUNIOR ART DIRECTOR: None. PREOPERATIVE DIAGNOSIS(ES): Left index finger infection over the middle and distal phalanges. ICD10 code S60.411A. POSTOPERATIVE DIAGNOSIS(ES): Left index finger infection over the middle and distal phalanges. ICD10 code S60.411A. PROCEDURE: Incision and drainage, superficial infection of left index finger over the middle and distal phalanges. CPT code 20396. ANESTHESIA: General plus metacarpal nerve block performed by surgeon for postoperative analgesia. DRAINS: None. COMPLICATIONS: None. ESTIMATED BLOOD LOSS: 3 mL. SPONGE AND NEEDLE COUNT: Correct. INDICATIONS: This is an 86-year-old male, who had some type of contusion to the hand, but he is not quite sure exactly what happened. He developed an infection of dorsal aspect status over the left index finger, over the middle and distal phalanges. The patient was seen by emergency department staff and they did aspirate a small amount and sent this fluid for culture yesterday. He was admitted for IV antibiotics. PROCEDURE IN DETAIL: Under adequate general anesthesia, a well-padded tourniquet was applied to the left upper extremity. Left arm was prepped and draped in sterile fashion. The arm was elevated but was not exsanguinated due to infection and it was inflated to 250 mmHg. A dorsal incision was fashioned over the distal portion of the middle phalanx and distal phalanx to the edge of the eponychial fold. There was purulent material and this was sent to Pathology. There was also some dermolysis and this skin that was peeling was surgically excised with scalpel. Any necrotic tissue and any purulent tissue or necrotic fat was removed. Cultures were sent. The wound was thoroughly irrigated with antibiotic solution with gentamicin. Some of the skin edges were sharply debrided. After the wound was thoroughly irrigated, clean gloves, clean instruments, and clean drapes were utilized. In order not to leave the central tendon exposed and possibly desiccate, I did loosely approximate the wound with a couple of horizontal mattress sutures of 4-0 nylon, leaving a couple of central and distal areas open that were packed with quarter-inch gauze. Xeroform was placed over the inflamed tissue leaving the central portion of the wound open and not occluded with Xeroform. Dry sterile gauze dressings were applied. Please note, tourniquet was released prior to packing the wound. Specimens were sent to Pathology including aerobic and anaerobic cultures. After the patient's hand was sterilely dressed, he was taken to recovery room in stable condition. Sponge and needle count correct. No complications. PLAN: The patient will continue to be on the hospitalist service and receive IV antibiotics, pending wound cultures. He will also need some outpatient wound care for dressing changes probably beginning on February 01. Infectious Disease should be consulted as to the extent of his antibiotics and the type of antibiotics. The patient may be followed back in the office in two weeks for suture removal. Rodney Robb MD 01/28/17 0615 Brief History The patient is a pleasant happily demented 86 Y/O M with past medical history of dementia, and essential hypertension controlled on metoprolol 25 mg daily. The patient presented to the ED from urgent care with complaint of left dorsal index finger redness, swelling, warmth, purulence and pain. The patient is an extremely poor historian and his family is not present during the interview. The patient states he believes the wound occurred approximately 2 weeks ago, however per the ED physician note and the urgent care note it seems the onset may have been 2 days ago. The patient is unable to recall any form of trauma to the finger. He states that the wound just happened. Patient patient denies fever, nausea, vomiting, chills, sweats, sore throat, abdominal pain, constipation, dysuria, cough, shortness of breath, dyspnea, chest pain. Patient currently lives with his son Larry as well as reportedly other family members he was unable to identify. An attempt to call his son's phone number was unsuccessful given the phone number had been disconnected. Phone number the patient gave for his son was [phone]. In the ED patient had I&D of the left dorsal index finger with removal of a small amount of pus that was sent for culture. Orthopedic surgery Dr. Cindy Robb was consulted by the ED physician and will be seeing the patient. Infectious disease was also consulted and is aware of the patient's status per the ED physician. The patient also has a wound on the back of his neck that he has been nervously picking at and causing to bleed. There was fresh blood on the pillowcase during the exam. Patient also appears to be excoriations on his right anterior forehead. X-ray showed: 2 small metallic structures within soft tissues lateral to the proximal phalanx of the second digit, and a similar appearing structure superimposed on the distal aspect of the fourth proximal phalanx also laterally. The appearance may indicate prior metal working in this circumstance. Underlying osteomyelitis or fracture is not seen but soft tissue swelling is clearly evident over the entirety of the second digit. Moderate osteoarthritis incidentally noted. CXR showed: Mild bibasilar atelectasis in the setting of reduced inspiratory volume and chronic mild asymmetric elevation of the right hemidiaphragm. A slight degree of pulmonary edema conceivably could be superimposed. In the ED patient received 3000 mg of Unasyn IV. Vital signs: temperature 37.2, pulse 80, respiratory rate 16, blood pressure 161 /75, oxygen 92% on room air hemogram showed: WBC 16.7 with 83.0 PMNs and 8.9% lymphs, H/H was 13.0/40.1, and MCV of 87.9, MCH 28.5, MCHC 32.4 Chemistry panel significant for a creatinine of 1.31 and a glucose of 133 Lactic acid was normal at 1.2 Urinalysis was not done EKG showed: Unknown rhythm, irregular rate, heart rate of 96, ID interval of 133 with nonspecific intraventricular conduction delay, he was present in leads II, III, and F aVF consistent with old inferior wall infarct, no acute ST segment changes or elevations or depressions note wave abnormalities seen. Hospital Course #Purulent acute Left index finger infection/cellulitis - WBC 16.7 - 11.4 by 2 days ago. - X-ray showed: 2 small metallic structures within soft tissues lateral to the proximal phalanx of the second digit, and a similar appearing structure superimposed on the distal aspect of the fourth proximal phalanx also laterally. The appearance may indicate prior metal working in this circumstance. Underlying osteomyelitis or fracture is not seen but soft tissue swelling is clearly evident over the entirety of the second digit. Moderate osteoarthritis incidentally noted. - Patient is status post I&D in the ED with culture of the purulent material recovered. Culture with MRSA. - Dr. Rodney Robb orthopedic surgery did I & D January 28 - Initially on Unasyn IV started in the ED, then January 28 Dr Christina changed him to IV Daptomycin - per Dr. Christina, Infectious disease, home on Doxycycline. #Hypertension, chronic, currently not adequately controlled - Continue home medication of metoprolol but increased from daily to 37.5 mg BID January 27 - today - Added Amlodipine and Lisinopri, to be continued at home. #Elevated creatinine, chronicity unknown, present on admission (1.31), - improved to 1.07 January 28 after some IVF - . 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 Jyalan Sorensen MD RECOMMENDATIONS: 1. The patient could be discharged on any one of several oral agents. The simplest drugs to use here would probably be doxycycline 100 mg twice a day. Though one must be careful to use it while the patient is sitting upright as taking it while he is recumbent could result in an esophageal injury. Other drugs that wide though would be flying here would be clindamycin 300 q.i.d. I would not use Bactrim in this situation. 2. If oral therapies do not seem feasible in this demented gentleman, we could give him a single intravenous dose of oritavancin 1200 mg IV x1. This would be quite expensive, but would avoid the need for any oral or continued parenteral therapy. 3. My final recommendation on this patient is that he be discharged whenever the hospitalist sees fit on doxycycline 100 mg p.o. b.i.d. for two weeks or clindamycin 300 mg p.o. q.i.d. for 10 weeks, and I would slightly favor the doxycycline because of the risk of diarrhea with the clindamycin. If this is not feasible or the hospitalist elects to use oritavancin please give me a call and I will place that order. 4. ID will be signing off. Jose Christina MD 01/31/17 0808 Exam Vital Signs (Last) Date Time Temp Pulse Resp B/P Pulse Ox O2 Delivery O2 Flow Rate FiO2 01/31/17 13:28 Supplement Oxygen 01/31/17 11:10 36.3 68 20 159/88 99 2.00 Exam Heart: RRR without murmur Lungs: CTAB Ext: No ankle edema the large ulcer/debrided area on the back of the left index finger is noted, with sutures in place. Test 01/27/17 16:48 01/28/17 05:57 01/29/17 04:05 01/29/17 06:21 Hemoglobin A1c 5.7% (4.8-5.6) Lactic Acid Level 1.2mmol/L (0.4-2.0) Total Bilirubin 1.0mg/dL (0.0-1.2) Aspartate Amino Transf (AST/SGOT) 13U/L (0-50) Alanine Aminotransferase (ALT/SGPT) 7U/L (0-44) Alkaline Phosphatase 68U/L (25-160) Total Protein 6.6g/dL (6.4-8.4) Albumin 3.1g/dL (3.4-5.0) Hold Urine Received (Received) White Blood Count 11.4th/mm3 (3.8-10.1) Red Blood Count 4.44mil/mm3 (4.40-5.80) Hemoglobin 12.7g/dL (13.8-17.2) Hematocrit 39.6% (41.0-50.0) Mean Corpuscular Volume 89.2fL (81-100) Mean Corpuscular Hemoglobin 28.6pg (27.0-35.0) Mean Corpuscular Hemoglobin Concent 32.1% (32.0-37.0) Red Cell Distribution Width 13.6% (12.3-15.4) Platelet Count 256bil/L (150-400) Neutrophils (%) (Auto) 74.1% (40-74) Lymphocytes (%) (Auto) 14.4% (14-46) Monocytes (%) (Auto) 7.1% (4-12) Eosinophils (%) (Auto) 3.8% (0-5) Basophils (%) (Auto) 0.3% (0-3) Sodium Level 140mEq/L (134-144) Potassium Level 3.9mEq/L (3.5-5.2) Chloride Level 107mEq/L (97-108) Carbon Dioxide Level 19mmol/L (18-29) Blood Urea Nitrogen 17mg/dL (8-27) Creatinine 1.07mg/dL (0.76-1.27) Estimat Glomerular Filtration Rate 69mL/min (>59) Glucose Level 171mg/dL (60-99) Calcium Level 8.6mg/dL (8.5-10.1) Total Creatine Kinase 55U/L (21-232) Discharge Medications Discharge Medications Amlodipine (Amlodipine) 5 Mg Tablet 10 MG PO DAILY Prescribed by: JAYLAN SORENSEN MD Doxycycline Monohyd (Doxycycline Monohyd) 100 Mg Tablet 100 MG PO BID Prescribed by: JAYLAN SORENSEN MD Lisinopril (Lisinopril) 20 Mg Tablet 20 MG PO DAILY Prescribed by: JAYLAN SORENSEN MD Metoprolol Tartrate (Metoprolol Tartrate) 25 Mg Tablet 37.5 MG PO BID Prescribed by: JAYLAN SORENSEN MD Followup Plan Discharge Diet: No restrictions Discharge Activity: No restrictions Patient Instructions Schedule wound care center first appointment christina. Home Health RN for wound care assistance at home christina. Change finger dressing daily and also whenever contaminated. Follow-up Provider: Gabe Sanon MD Follow-up with PCP in: 1 week Provider: Rodney Robb MD Follow-up in: 2 weeks Time spent 45 minutes Heather Sorensen MD Jan 31, 2017 13:59
== END 2017-01-31 13:40 | disposition home health service (06) | DRG 581 ==
LOC: SED 15:58 → OSC 17:38 → PCC 23:10 → OSC 23:16
PROVIDERS: ADMIT Internal Medicine; ATTEND Internal Medicine
PROC: 0H9GXZX Drainage of Left Hand Skin, External Approach, Diagnostic (ICD-10-PCS; 2017-01-27)
PROC: 0J9K0ZZ Drainage of Left Hand Subcutaneous Tissue and Fascia, Open Approach (ICD-10-PCS; principal; 2017-01-28 10:00)
DX: L03.012 Cellulitis of left finger (principal); R73.9 Hyperglycemia, unspecified; I10 Essential (primary) hypertension; D72.829 Elevated white blood cell count, unspecified; D64.9 Anemia, unspecified; B95.62 Methicillin resistant Staphylococcus aureus infection as the cause of diseases classified elsewhere